=== PATIENT | female | born 1975 | race Caucasian/White ===

== ENCOUNTER 2020-09-03 08:05 | Inpatient (IN) | payer OTHER, SELFPAY ==
[2020-09-03] VITALS (119 sets, daily range): BP systolic 79–111; BP diastolic 44–61; PULSE 66–91; RESP 18–33; TEMP 36.9–37; O2SAT 82–95; BMI 45.3
[2020-09-03 08:32] LABS: Basophils % 0.2 %; Hematocrit 35.4 % (37.0-47.0); Hemoglobin 11.3 g/dL (11.5-15.3); Lymphocytes # 0.5 10^3/uL (0.8-4.8); Mean Corpuscular HGB Conc 31.9 g/dL (30.0-36.0); Mean Corpuscular Hemoglobin 28.8 pg (28.0-34.0); Mean Corpuscular Volume 90.3 fL (81-99); Mean Platelet Volume 9.8 fL (7.4-10.4); Monocytes # 0.4 10^3/uL (0.2-0.9); Monocytes % 2.6 %; Neutrophils % 93.7 %; Nucleated Red Blood Cells % 0 %; Platelet Count 268 10^3/cmm (130-400); Red Blood Count 3.92 10^6/uL (4.1-5.3); Red Cell Distribution Width 14.4 % (12.1-15.1); White Blood Count 16.4 10^3/uL (4.0-10.0)
[2020-09-03 08:51] LABS: Alanine Aminotransferase 30 U/L (0-33); Albumin Level 3.7 g/dL (3.5-5.2); Alkaline Phosphatase 78 IU/L (35-105); Aspartate Amino Transferase 45 U/L (0-32); Blood Urea Nitrogen 18 mg/dL (6-20); Calcium 8.6 mg/dL (8.5-10.5); Carbon Dioxide 29 mmol/L (22-29); Chloride 98 mmol/L (98-107); Globulin 3.2 g/dL (1.3-4.6); Glomerular Filtration Rate 90.5 mL/min (90-130); Glucose 122 mg/dL (65-115); Osmolality Calculated 289 mOsm/kg (285-295); Sodium 138 mmol/L (136-145); Total Bilirubin 0.4 mg/dL (0.15-1.2); Total Protein 6.9 g/dL (6.6-8.7)
[2020-09-03 08:54] LABS: ABG PCO2 46.6 mmHg (35-45); ABG PH Result 7.42 (7.35-7.45); Arterial Blood Gas Hematocrit 36.1 % (37-47); Base Excess ABG 4.6 mmol/L (-2.0-2.0); Blood Gas Allen Test Pos; Blood Gas Operator Identificat MONRO; Blood Gas Sample Site Radial, left; Blood Gas Sample Type Arterial; Carboxyhemoglobin 0.8 %THgb (0.4-20.1); HCO3 ABG 29.9 mmol/L (22-26); HGB O2 Sat 91.2 % (95-100); Ionized Calcium Level - ABG 1.2 mmol/L (1.1-1.4); Methemoglobin 0.9 % (0.4-1.5); Oxygen Device BIPAP; Oxygen Saturation ABG 92.8; PO2 ABG 63.8 mmHg (80.0-100.0); Potassium Level - ABG 3.8 mmol/L (3.5-5.0); Total Hemoglobin 11.8 g/dL (12-16)
[2020-09-03] MEDS: succinylcholine 20 mg/mL SDV 10mL 100 MG IV (09:44)
--- NOTE | 2020-09-03 10:04 | XR_ITS ---
WS: [id number] PORTABLE CHEST HISTORY: intubation, central line placement COMPARISON: None available. Endotracheal tube ends 2 cm above the tyesha. LEFT central line with tip terminating in the LEFT inno minate, prior to the superior vena cava. Severe bilateral pulmonary opacifications. Dense areas of consolidation bilaterally. No pleural effus ion or pneumothorax. Cardiac size: Normal. Mediastinum/Aorta: Normal mediastinum. No osseous abnormality seen. XR/XR chest 1V portable [id number] IMPRESSION: 1. Endotracheal tube in good position. 2. LEFT central line terminates at the junction of the LEFT innominate with th e SVC. 3. Severe bilateral pulmonary opacifications.
[2020-09-03] MEDS: vecuronium 10 mg SDV IVP (10:05)
[2020-09-03] MEDS: propofol 1,000 MG/100 ML INJ 16.9 MG IV (10:15)
[2020-09-03] MEDS: ipratropium-albuterol 3 mL Neb INHALATION ×3 (12:48→19:37)
[2020-09-03] MEDS: famotidine 20 mg/2 mL INJ IVP (13:52)
[2020-09-03] MEDS: piperacillin-tazobactam 3.375 GM in sodium chloride 0.9% (plus) 50 ML IV ×2 (13:52→21:40)
[2020-09-03] MEDS: enoxaparin 40 mg/0.4 mL Syringe SUBCUT (13:52)
[2020-09-03] MEDS: remdesivir 200 MG in sodium chloride 0.9% (100 ml) 100 ML 100 MG IV (13:52)
[2020-09-03] MEDS: dexamethasone 4 mg/mL INJ 6 MG IVP (14:18)
[2020-09-03 14:19] LABS: ABG PCO2 55.7 mmHg (35-45); ABG PH Result 7.35 (7.35-7.45); Alveolar-Arterial Oxygen Gradi 75.7 mmHg (5-10); Arterial Blood Gas Hematocrit 34.2 % (37-47); Blood Gas Allen Test Pos; Blood Gas Operator Identificat MONRO; Blood Gas Sample Site Radial, right; Blood Gas Sample Type Arterial; HCO3 ABG 30.7 mmol/L (22-26); Ionized Calcium Level - ABG 1.2 mmol/L (1.1-1.4); Methemoglobin 0.6 % (0.4-1.5); Oxygen Device VENT; Oxygen Saturation ABG 91.5; PO2 ABG 63.3 mmHg (80.0-100.0); Potassium Level - ABG 3.8 mmol/L (3.5-5.0); Total Hemoglobin 11.2 g/dL (12-16)
--- NOTE | 2020-09-03 14:25 | P.HP_ITS ---
Providers/Chief Complaint Admitting Physician: Sandy Mohamud Chief Complaint: Dyspnea History of Present Illness 45-year-old female with a past medical history significant for anxiety, depression, hypertension, restless leg syndrome and asthma who presented to the ER on 09/02 during which time she was found to have COVID-19 Infection s ubsequently discharged on oxygen and Decadron. She will return to the hospital due to progressively worsening respiratory distress. O2 sat was found to be 76%. She was placed on BiPAP, given ceftriaxone, azithromycin and transferred to [facility]. Upon arrival patient was noted to have labored respiration on BiPAP with Fio2 at 100%. ABG drawn showed a PH of 7.42, pCO2 of 46.6, Po2 of 63.8, HCO3 of 29.0. Due to increase work of breath and high risk for decompensation patient was intubated on placed on mechanical ventilation. Remained of labs drawn showed a WBC of 16.4, hgb of 11.3, hct of 35.4 and a platlet count of 268. Sodium of 138, potassium of 4.0, chloride of 98, bicarbonate of 29, BUN of 18 and a creatinine of 0.7. AST of 45, ALT of 30 and ALP of 78. Chest x-ray was obtained post extubation which noted severe bilateral pulmonary opacifications, ET tube at 2 cm above the tyesha and left centeral line terminated at the junction of the left innominate with the SVC. Started initially on propofol for sedation however this was being transitioned to versed with addition of fentanyl. Remdesivir 200mg IV x1 followed by 100mg IV daily x 4 days was initiated along with broad specturm antibiotics including vancomycin and zosyn. Pulmonary medicine was consulted. Of note patient was started on decadron which patient was apperantly taking prior to arrival and tolerating despite listed prednisone allergy. Review of Systems General: Reports: ROS unobtainable due to endotracheal tube Medications/Allergies Allergies Allergy/AdvReac Type Severity Reaction Status Date / Time prednisone Allergy Unknown Verified 09/03/20 13:43 Sulfa (Sulfonamide Allergy Unknown Verified 09/03/20 13:43 Antibiotics) PFSH Acute PFSH: Medical History (Updated 09/03/20 @ 14:30 by Sandy Mohamud MD) Anxiety Asthma Depression Hypertension Morbid obesity Restless leg syndrome Surgical History (Updated 09/03/20 @ 14:29 by Sandy Mohamud MD) Surgical history unknown Social History (Updated 09/03/20 @ 14:29 by Sandy Mohamud MD) Smoking and tobacco status: unknown if ever smoked Alcohol intake: unknown Substance/Drug Use: unknown Vitals/I&O/Wt Last Vital Signs Pulse 84 09/03/20 12:48 Resp 22 H 09/03/20 12:48 Pulse Ox 95 09/03/20 12:48 09/02/20 09/03/20 09/03/20 22:59 06:59 14:59 Intake Total 11.575 / 11.575 Balance 11.575 / 11.575 Weight last 48 hrs Weight 112.548 kg Physical Exam Narrative: EXAM NARRATIVE: General : intubated on MV HEENT : ET tube in place CVS : NSR Chest : B/L vented sounds ABD : Non-distended Ext: no edema Data : 09/03/20 08:00 09/03/20 08:00 A&P Assessment and plan (1) Acute respiratory distress syndrome (ARDS) due to 2019 novel coronavirus: Status: Acute Acute respiratory distress syndrome due to COVID-19 pneumonia on mechanical ventilation / Reported underlying Asthma - Intubated on arrival due to increase work of breathing, hypoxia on 100% Fio2 - Left centeral line placed. Slighlty above SVC. ok to use for now. If prolonged need will re-insert unable to advance now. - Repeat ABG post intubating/mv ordered - Will continue adjust vent settings with assistance from pulmonary medicine - Versed/Fentanyl for sedation. Weaning off propofol - Maintain RASS neg 2 - Deep sedation - Remdesivir 200mg IV x1 now - > 100 mg daily x 4 days - Decadron 6 mg IV daily ordered after clarifying allergy - Less likley to have super-imposed bacterial infection however will obtain blood culture x2, sputum culture and start broad specturm antibiotics pending pro-calcitonin. - Low threshold to de-escalating off abx - Repeat chest x-ray and ABG in AM - Start on Broncho-dilatory treatments - Will also check D-dimer stat now- If high will obtain CTA Chest PE protocol FEN - Dietary consult - Initiate Tube feeding Lines/Tubes - ET tube - L. IJ Central line - PIV - Yepez - OG Gi ppx - Pepcid 20 mg IV BID DVT ppx - Lovenox 40 mg SQ daily Additional Medical History ( obtained per sign-out ) - Hypertension - Anxiety/depression - Restless leg syndrome Procedures Central Line Placement^ Left IJ: Time out performed: Yes Patient placed on monitor/pulse ox: Yes MD prep: mask, gown, gloves and other (Facesheild ) Central line prep: Chlorhexidine scrub and sterile drapes applied Ultrasound used for placement: Yes Central line lumen inserted: triple Post procedure: sutured in place, good blood return, all ports aspirated, flushed, capped and sterile dressing applied Post procedure x-ray: other (Tip of catherter slightly above SVC) Patient tolerated procedure: well and no complications Complications: none Additional comments: Procedure was supervised by Dr. Rankin Intubation Time out performed: Yes Sedative: etomidate Mg given: 20 Paralytic: succinylcholine Mg given: 100 Laryngoscope: fiber optic video scope ET tube size: 4 ET tube uncuffed: Yes Tube secured depth (cm): 22 Tube secured location: teeth Tube placement confirmation: visualized tube passing through cords, equal breath sounds bilaterally, confirmation by capnometry and color change noted Patient tolerated procedure: well and no complications Intubation complications: none Attestations Medical Necessity Statement*: Will require over 2 midnight stay in hospital for management of ARDs due to COVID19 requiring vent Time Spent in Patient Care: Greater than 35 minutes (>than 50% of time spent in counselling and/or direct pt care on unit) . Critical Care Time: Critical Care Time (min): 80 Coding Level of Care Code Acute [facility] Diagnoses Acute respiratory distress syndrome (ARDS) due to 2019 novel coronavirus U07.1; J80
[2020-09-03] MEDS: vancomycin 1,250 MG/250 ML PIGGYBACK 200 MG IV (15:17)
[2020-09-03] MEDS: propofol 1,000 MG/100 ML INJ 6.8 MG IV (15:17)
--- NOTE | 2020-09-03 16:29 | PM.CONSULT ---
Providers/Reason For Consult Consulting Physican/Specialty*: Jeronimo Torres MD /Pulmonary Critical Care Reason for Consult*: Vent management in acute hypoxic respiratory failure secondary to ARDS due to COVID-19 pneumonia. Attending Physician: Sandy Mohamud History of Present Illness History of Present Illness 45-year-old female with a PMH significant for anxiety, depression, hypertension, restless leg syndrome and asthma who presented to the ER on 09/02, found to have COVID-19 Infection subsequently discharged on oxygen and Decadron and returned to hospital for progressively worsening respiratory distress. O2 sat was found to be 76%. Initially placed on BiPAP, given ceftriaxone, azithromycin and transferred to [facility]. Upon arrival patient was noted to have labored respiration on BiPAP with Fio2 at 100%. ABG drawn showed a PH of 7.42, pCO2 of 46.6, Po2 of 63.8, HCO3 of 29.0. Due to increase work of breath and high risk for decompensation patient was intubated on placed on mechanical ventilation. Chest x-ray was obtained post extubation which noted severe bilateral pulmonary opacifications. Started initially on propofol for sedation however this was being transitioned to versed with addition of fentanyl. Remdesivir 200mg IV x1 followed by 100mg IV daily x 4 days was initiated along with broad specturm antibiotics including vancomycin and zosyn. Despite 100% FiO2 on ventilator with a PEEP of 12 patient was saturating low 80s initially post intubation. Pulmonary/CC consult requested for management of ventilator. Review of Systems General: Reports: 10 or more systems reviewed and unremarkable except in HPI and below, ROS unobtainable due to endotracheal tube, ROS unobtainable due to medical condition and ROS unobtainable due to mental status Meds/Allergies Home Medications and Allergies Allergies Allergy/AdvReac Type Severity Reaction Status Date / Time prednisone Allergy Unknown Verified 09/03/20 13:43 Sulfa (Sulfonamide Allergy Unknown Verified 09/03/20 13:43 Antibiotics) Current Medications Current Medications Generic Name Dose Route Start Last Admin Trade Name Freq PRN Reason Stop Dose Admin Albuterol/Ipratropium 3 ml 09/03/20 12:00 09/03/20 15:21 Ipratropium-Albuterol 3 Ml Neb INHALATION 3 ml Q4H.RESPIRATORY LUIS Administration Dexamethasone 6 mg 09/03/20 13:30 09/03/20 14:18 Dexamethasone 4 Mg/Ml Inj IVP 6 mg Q24H LUIS Administration Enoxaparin Sodium 40 mg 09/03/20 13:00 09/03/20 13:52 Enoxaparin 40 Mg/0.4 Ml Syringe SUBCUT 40 mg Q24H LUIS Administration Famotidine 20 mg 09/03/20 13:00 09/03/20 13:52 Famotidine 20 Mg/2 Ml Inj IVP 20 mg Q12H LUIS Administration Propofol 1,000 mg in 100 mls @ 0 mls/hr 09/03/20 10:00 09/03/20 15:17 Diprivan IV 10 mcg/kg/min .Q0M LUIS 6.8 mls/hr Administration Protocol Per Protocol Fentanyl 1,000 mcg/ Sodium 100 mls @ 0 mls/hr 09/03/20 10:45 09/03/20 12:40 Chloride IV 150 mcg/hr .Q0M LUIS 15 mls/hr Titration Protocol Per Protocol Midazolam HCl 100 mg/ Sodium 100 mls @ 0 mls/hr 09/03/20 12:15 09/03/20 14:04 Chloride IV 1 mg/hr .Q0M LUIS 1 mls/hr Administration Protocol Per Protocol Piperacillin Sod/Tazobactam 50 mls @ 12.5 mls/hr 09/03/20 13:00 09/03/20 13:52 Sod 3.375 gm/ Sodium Chloride IV 12.5 mls/hr Q8H LUIS Administration Protocol Vancomycin/PEG/NADA/Lysine/Water 1,250 mg in 250 mls @ 200 mls/hr 09/03/20 15:00 09/03/20 15:17 Vancocin IV 200 mls/hr Q8H LUIS Administration PFSH Acute PFSH: Medical History Anxiety Asthma Depression Hypertension Morbid obesity Restless leg syndrome Surgical History Surgical history unknown Social History Smoking and tobacco status: unknown if ever smoked Alcohol intake: unknown Substance/Drug Use: unknown Vitals/I&O/Wt Last Vital Signs Pulse 68 09/03/20 15:21 Resp 22 H 09/03/20 15:21 Pulse Ox 91 09/03/20 15:21 09/03/20 09/03/20 09/03/20 06:59 14:59 22:59 Intake Total 106.842 / 106.842 102.2 / 209.042 Balance 106.842 / 106.842 102.2 / 209.042 Weight last 48 hrs Weight 248 lb 2 oz Physical Exam Narrative: EXAM NARRATIVE: PHYSICAL EXAM: General: lying in bed, sedated and intubated. HEENT:NCAT, PERRLA, EOMI Neck: Supple Lungs: Bilateral diffuse crackles and coarse rhonchi Heart: s1/s2, RRR Abd: Obese, soft, NT, ND, BS + Normoactive Extremities: No edema COLLAR TURNER OPERATOR: sedated and limited COLLAR TURNER OPERATOR exam possible. SKIN: no rash LDA: # CVC: Left IJ 09/03/2020 # Fernandes: 09/03/2020 Data Other Data: Other data: Labs, imaging, other investigations reviewed in [facility] Chest x-ray 09/03/2020: 1. Endotracheal tube in good position. 2. LEFT central line terminates at the junction of the LEFT innominate with the SVC. 3. Severe bilateral pulmonary opacifications. A&P Assessment and plan (1) Acute respiratory distress syndrome (ARDS) due to 2019 novel coronavirus: Status: Acute (2) Asthma: Status: Acute Qualifiers: Asthma severity: unspecified severity Asthma persistence: unspecified Asthma complication type: unspecified Qualified Code(s): J45.909 - Unspecified asthma, uncomplicated (3) HTN (hypertension): Status: Acute Qualifiers: Hypertension type: unspecified Qualified Code(s): I10 - Essential (primary) hypertension (4) Ventilator dependent: Status: Acute (5) Acute respiratory failure with hypoxia: Status: Acute (6) Morbid obesity: Status: Acute 45-year-old female with a PMH significant for anxiety, depression, hypertension, restless leg syndrome and asthma who presented to the outside ER on 09/02, found to have COVID-19 Infection subsequently discharged on oxygen and Decadron and returned to hospital for progressively worsening respiratory failure admitted to viral ICU for management of acute hypoxemic respiratory failure secondary to acute respiratory distress syndrome due to COVID-19 pneumonia requiring intubation and mechanical ventilation. NEURO: # Sedation -Recommended to increase sedation with drips drips fentanyl 150 MCG/hr, Versed 2 mg/hr, and taper down propofol -If patient is overbreathing the vent then start paralytic Nimbex/rocuronium PULM: #Acute hypoxic and hypercapneic respiratory failure secondary to ARDS due to COVID pna #Respiratory status worsened by contribution from asthma exacerbation -Intubated on 09/02/2020 -Post intubation patient was saturating in 70s even on 100% FiO2 and PEEP 14; but after increasing sedation and nebulizations currently saturating 94% -Recommended -DuoNeb nebulization every 4 hours and Pulmicort 0.5 twice daily -Most recent ABG on pressure control mode 30 PIP, PEEP 14, rate 20, inspiratory time 0.95 seconds and FiO2 100% - 7.3 5/55/63/34/91% -If hypoxia is persistent this might on maximum settings recommended starting on paralytic and prone -CXR Patchy multifocal airspace disease bilaterally. -please send other inflammatory markers ESR, LDH, CRP, ferritin and repeat every 2 days to trend markers of inflammation -Currently on remdesivir and dexamethasone daily CVS: -Hemodynamically stable -Recommended to taper down propofol -Monitor heart rate and blood pressure -Please send for BNP and echo GI: -N.p.o. -H2 chasidy daily for GI prophylaxis -AST 45-monitor LFTs RENAL: -Renal functions normal -Electrolytes within normal limits -Send for magnesium, phosphorus, lactic acid and CK -Monitor input output -Continue fernandes cath -Avoid nephrotoxins -Monitor BUN/creatinine and electrolytes and supplement accordingly to keep k>4, Mg >2 HEM: H&H stable Plts stable,will trend Coags stable ENDO: -No active issues -If sugars and CMP are high-start on scale coverage ID: #Severe sepsis secondary to COVID pna -WBC 16 K with left shift -could be due to steroids which she was taking even before admission - Afebrile -Covered with vancomycin and Zosyn -Send for procalcitonin and lactic acid -If patient spikes fever or WBC worsens please send for pancultures -BC,UA,Sputum culture and start on broad-spectrum antibiotics vancomycin and cefepime. Prognosis: Critical Family updated Recommendations conveyed to Dr. Mohamud taking care of the patient Consult Attestations Medical Necessity Statement: acute hypoxemic respiratory failure requiring intubation and mechanical ventilation secondary to acute respiratory distress syndrome due to COVID-19 pneumonia in patient with history of asthma. Time Spent in Patient Care: Greater than 35 minutes (>than 50% of time spent in counselling and/or direct pt care on unit). Critical Care Time: Critical Care Time (min): 45 Coding Level of Care Code New Pt Acute Finisher Denture for Chg Fwd Patient Type New History Comprehensive Exam Comprehensive Medical Decision Making High Complexity Diagnoses Acute respiratory distress syndrome (ARDS) due to 2019 novel coronavirus U07.1; J80 Asthma J45.909 Asthma severity: unspecified severity Asthma persistence: unspecified Asthma complication type: unspecified HTN (hypertension) I10 Hypertension type: unspecified Ventilator dependent Z99.11 Acute respiratory failure with hypoxia J96.01 Morbid obesity E66.01 Time Spent (min) 45
[2020-09-03] MEDS: magnesium sulfate premix 2 GM/50 ML PIGGYBACK IV (19:31)
[2020-09-03] MEDS: budesonide 0.5 mg/2 mL Neb INHALATION (19:37)
[2020-09-03] MEDS: sodium chloride 0.9% 1,000 ML 30 ML IV (19:54)
--- NOTE | 2020-09-03 21:12 | PC.NURSE ---
Care Assumed Patient was found by this RN to have a Pulse Ox ranging from 84-86% with 100% FIO2 on vent settings at time of shift change. Patient appeared anxious with RR up around 40BMP. This RN increased Propofol from 30mcg to 40mcg in efforts to help decrease anxiety exhibited by patient, after attempted guided breathing exercises failed. Patient returned to baseline of 89-92% reported by dayshift after titration of drip. Pt now resting comfortably with RN and RT frequently rounding on patient's needs. Drips found running at shift change are as listed: Propofol 30mcg/kg/min Fentanyl 150mcg/hr Versed 3mg/hr Levophed 2mcg/min
[2020-09-03 22:07] LABS: Procalcitonin 0.13 ng/mL (0-0.5)
[2020-09-03 22:19] LABS: Ferritin 360 ng/mL (15-150)
[2020-09-03] MEDS: propofol 1,000 MG/100 ML INJ 27 MG IV (22:28)
[2020-09-03 22:39] LABS: D Dimer 0.78 ug/mIFEU (0-0.59)
[2020-09-04] VITALS (154 sets, daily range): BP systolic 79–120; BP diastolic 47–79; PULSE 74–108; RESP 22–24; TEMP 37–37.6; O2SAT 82–100
[2020-09-04] MEDS: ipratropium-albuterol 3 mL Neb INHALATION ×6 (00:02→20:37)
--- NOTE | 2020-09-04 00:14 | PC.NURSE ---
Patient continuing to fluctuated between 80-85% SPO2 while actively placed on vent. Vent settings remain at 100% FIO2. Patient is not/has not been breathing over vent settings at this time. RN consulted MD national van owner operator to update on pt's overall condition/with concerns and discuss further options going forth. Since pt is not breathing over vent settings, MD verbalized that paralytic and proning were not indicated at this time. New orders received for RT to perform a PRN Albuterol breathing tx at this time. RN continuing to monitor/round frequently.
[2020-09-04] MEDS: famotidine 20 mg/2 mL INJ IVP ×2 (00:29→12:19)
[2020-09-04] MEDS: vancomycin 1,250 MG/250 ML PIGGYBACK 200 MG IV ×3 (00:29→14:04)
[2020-09-04] MEDS: propofol 1,000 MG/100 ML INJ 20.3 MG IV ×2 (02:58→21:29)
[2020-09-04 03:58] LABS: ABG PCO2 57.5 mmHg (35-45); ABG PH Result 7.33 (7.35-7.45); Arterial Blood Gas Hematocrit 36.2 % (37-47); Blood Gas Sample Site Radial, right; Blood Gas Sample Type Arterial; HCO3 ABG 30.2 mmol/L (22-26); Oxygen Device VENT; PO2 ABG 60.2 mmHg (80.0-100.0)
[2020-09-04 04:53] LABS: Basophils % 0.1 %; Hematocrit 34.6 % (37.0-47.0); Hemoglobin 10.7 g/dL (11.5-15.3); Lymphocytes # 0.3 10^3/uL (0.8-4.8); Lymphocytes % 1.8 %; Mean Corpuscular HGB Conc 30.9 g/dL (30.0-36.0); Mean Corpuscular Hemoglobin 28.8 pg (28.0-34.0); Mean Corpuscular Volume 93.3 fL (81-99); Mean Platelet Volume 9.7 fL (7.4-10.4); Monocytes # 0.7 10^3/uL (0.2-0.9); Monocytes % 3.7 %; Neutrophils # 17.04 10^3/uL (1.8-7.7); Neutrophils % 92.8 %; Nucleated Red Blood Cells % 0 %; Platelet Count 315 10^3/cmm (130-400); Red Blood Count 3.71 10^6/uL (4.1-5.3); Red Cell Distribution Width 14.7 % (12.1-15.1); White Blood Count 18.4 10^3/uL (4.0-10.0)
[2020-09-04 05:17] LABS: Alanine Aminotransferase 35 U/L (0-33); Albumin Level 3.5 g/dL (3.5-5.2); Alkaline Phosphatase 75 IU/L (35-105); Anion Gap 13.7 (5-19); Aspartate Amino Transferase 41 U/L (0-32); Blood Urea Nitrogen 24 mg/dL (6-20); Calcium 8.1 mg/dL (8.5-10.5); Carbon Dioxide 29 mmol/L (22-29); Chloride 98 mmol/L (98-107); Globulin 3.2 g/dL (1.3-4.6); Glomerular Filtration Rate 90.5 mL/min (90-130); Glucose 171 mg/dL (65-115); Osmolality Calculated 292 mOsm/kg (285-295); Potassium 3.7 mmol/L (3.5-5.1); Sodium 137 mmol/L (136-145); Total Bilirubin 0.5 mg/dL (0.15-1.2); Total Protein 6.7 g/dL (6.6-8.7)
[2020-09-04] MEDS: piperacillin-tazobactam 3.375 GM in sodium chloride 0.9% (plus) 50 ML IV ×2 (06:07→12:16)
[2020-09-04] MEDS: budesonide 0.5 mg/2 mL Neb INHALATION ×2 (07:27→20:37)
[2020-09-04] MEDS: propofol 1,000 MG/100 ML INJ 27 MG IV (08:17)
--- NOTE | 2020-09-04 10:17 | XRR_ITS ---
PROCEDURE INFORMATION: Exam: XR Chest, 1 View Exam date and time: 09/04/2020 10:49 AM Age: 45 years old Clinical indication: Device placement; Ett placement (vent status); Additional info: Et placement confirmation TECHNIQUE: Imaging protocol: XR of the chest Views: Frontal portable semiupright view of the chest. COMPARISON: CR XR chest 1V portable [id number] 09/03/2020 10:23 AM FINDINGS: Tubes, catheters and devices: The endotracheal tube tip is approximately 4.5 cm above the tyesha. EKG leads are present overlying the chest. Lungs: Moderate pulmonary hypoexpansion. Stable heterogeneous air space opacities in the bilateral lungs. Pleural space: No definite pleural effusion. No pneumothorax. Heart/Mediastinum: Mediastinum: Stable. Vasculature: The left internal jugular venous catheter tip is in the proximal left internal jugular vein. Bones/joints: Stable. Gastrointestinal tract: Gaseous gastric distention. XR/XR chest 1V portable [id number] IMPRESSION: 1. Moderate pulmonary hypoexpansion. 2. Stable bilateral pulmonary infiltrates, pneumonitis not excluded. Clinical correlation is recommended. 3. Endotracheal tube placement as above. 4. Gaseous gastric distention.
[2020-09-04] MEDS: propofol 1,000 MG/100 ML INJ 23.6 MG IV ×2 (11:20→15:45)
[2020-09-04 11:48] LABS: ABG PCO2 56.3 mmHg (35-45); ABG PH Result 7.33 (7.35-7.45); Alveolar-Arterial Oxygen Gradi 77.2 mmHg (5-10); Arterial Blood Gas Hematocrit 34.4 % (37-47); Base Excess ABG 2.8 mmol/L (-2.0-2.0); Blood Gas Allen Test Pos; Blood Gas Operator Identificat CAK; Blood Gas Sample Site Radial, left; Blood Gas Sample Type Arterial; Carboxyhemoglobin 0.8 %THgb (0.4-20.1); HCO3 ABG 29.7 mmol/L (22-26); HGB O2 Sat 86.7 % (95-100); Ionized Calcium Level - ABG 1.1 mmol/L (1.1-1.4); Methemoglobin 1.1 % (0.4-1.5); Oxygen Device VENT; Oxygen Saturation ABG 88.4; PO2 ABG 56.2 mmHg (80.0-100.0); Potassium Level - ABG 3.3 mmol/L (3.5-5.0); Total Hemoglobin 11.2 g/dL (12-16)
[2020-09-04] MEDS: enoxaparin 40 mg/0.4 mL Syringe SUBCUT (12:18)
[2020-09-04] MEDS: dexamethasone 4 mg/mL INJ 6 MG IVP (14:05)
--- NOTE | 2020-09-04 14:59 | P.PN_ITS ---
Subjective Subjective: Interval history: 45-year-old female with a past medical history significant for anxiety, depression, hypertension, restless leg syndrome and asthma who presented to the ER on 09/02 during which time she was found to have COVID-19 Infection subsequently discharged on oxygen and Decadron. She will return to the hospital due to progressively worsening respiratory distress. O2 sat was found to be 76%. She was placed on BiPAP, given ceftriaxone, azithromycin and transferred to [facility]. Upon arrival patient was noted to have labored respiration on BiPAP with Fio2 at 100%. ABG drawn showed a PH of 7.42, pCO2 of 46.6, Po2 of 63.8, HCO3 of 29.0. Due to increase work of breath and high risk for decompensation patient was intubated on placed on mechanical ventilation. Remained of labs drawn showed a WBC of 16.4, hgb of 11.3, hct of 35.4 and a platlet count of 268. Sodium of 138, potassium of 4.0, chloride of 98, bicarbonate of 29, BUN of 18 and a creatinine of 0.7. AST of 45, ALT of 30 and ALP of 78. Chest x-ray was obtained post intubation which noted severe bilateral pulmonary opacifications, ET tube at 2 cm above the tyesha and left centeral line terminated at the junction of the left innominate with the SVC. Started initially on propofol for sedation however this was being transitioned to versed with addition of fentanyl. Remdesivir 200mg IV x1 followed by 100mg IV daily x 4 days was initiated along with broad spectrum antibiotics including vancomycin and zosyn. Pulmonary medicine was consulted. Of note patient was started on decadron which patient was apparently taking prior to arrival and tolerating despite listed prednisone allergy. 09/04 Patient was noted to have cuff leak and thus ET tube was replaced. Continue on vent with sedation. Also continued to require 100% Fio2. Low grade temp -99.2. Medications: Reviewed: Yes Vitals/I&O/Wt Last Vital Signs Temp 99.2 F 09/04/20 14:00 Pulse 90 09/04/20 14:00 Resp 22 H 09/04/20 14:00 BP 85/52 09/04/20 14:00 Pulse Ox 96 09/04/20 14:00 09/03/20 09/04/20 09/04/20 22:59 06:59 14:59 Intake Total 679.960 / 786.802 600.0 / 1386.802 796.923 / 796.923 Output Total 350 / 650 500 / 1150 325 / 325 Balance 329.960 / 136.802 100 / 236.802 471.923 / 471.923 Weight last 48 hrs Weight 112.549 kg Weight 112.548 kg Physical Exam Narrative: EXAM NARRATIVE: General : intubated on MV HEENT : ET tube in place CVS : NSR Chest : B/L vented sounds ABD : Non-distended Ext: no edema Data : 09/04/20 04:00 09/04/20 04:00 Micro: Microbiology 09/03/20 18:20 Gram Stain - Final Sputum - Endotracheal Wash 09/03/20 17:24 Blood Culture - Preliminary Blood SPECIMEN COLLECTED 09/03/20 17:11 Blood Culture - Preliminary Blood SPECIMEN COLLECTED A&P Assessment and plan (1) Acute respiratory distress syndrome (ARDS) due to 2019 novel coronavirus: Status: Acute Acute respiratory distress syndrome due to COVID-19 pneumonia on mechanical ventilation / Reported underlying Asthma - Intubated on 09/03 - D-dimer - 0.75 - 09/04 - ABG - PH of 7.33, PCO2 of 56.3, PO2 of 56.2, HCO3 of 29.7 on PS, PEEP 14, Fio2 100% - 09/04 - Chest x-ray -> Moderate pulmonary htn, stable b/l pulmonary infiltrates, ET 4.5 cm above the tyesha, gaseous distention of stomach. - Currently on Propofol, Versed and Fentanyl for sedation - Maintain RASS neg 4 - Deep sedation protocol - Continue Duoneb Q4hr , Pulmicort 0.5 mg BID - Found to have cuff leak this am - ET Tube replaced - Follow up on repeat ABG - Chest x-ray in AM - Will consider initiating nimbix and attempting proning today - D/W pulmonary medicine on consult Hypotension - Likely due to sedative meds - Levophed ordered to keep MAP > 65 - Wean as tolerated COVID -19 Pneumonia - Less likely super imposed bacterial component - Pro-calcitonin - 0.13 - 09.03 Blcx - > NGTD - 09.03 Sputum culture - GS-neg, Culture - NGTD - Empirically on Vancomcyin/Zosyn 09/02 - Will discontinue antibiotics and monitor off - Remdesivir 100 mg IV daily until 09/07 - Decadron 6 mg IV daily - Repeat Ferritin, CRP, Pro-marcela, D-dimer q2 days Hypokalemia - K 3.3 - Replace and recheck in AM Leukocytosis - Likely steroid induced - WBC 18.4 - Procal 0.13 - CBC in AM Tranaminitis - Likely due to above - AST 41 - ALT - 35 - Continue daily LFTs Lines/Tubes - ET tube - L. IJ Central line - PIV - Yepez - OG Gi ppx - Pepcid 20 mg IV BID DVT ppx - Lovenox 40 mg SQ daily Additional Medical History ( obtained per sign-out ) - Hypertension - Anxiety/depression - Restless leg syndrome Attestations Medical Necessity Statement*: Will require hospitalization for management of covid 19 related respiratory failure Time Spent in Patient Care: Greater than 35 minutes (>than 50% of time spent in counselling and/or direct pt care on unit) . Procedures Intubation Time out performed: Yes Sedative: other (Propofol ) Laryngoscope: fiber optic video scope ET tube size: 8 ET tube uncuffed: No Tube secured depth (cm): 24 Tube secured location: teeth Tube placement confirmation: visualized tube passing through cords, equal breath sounds bilaterally, confirmation by capnometry and color change noted Patient tolerated procedure: well and no complications Intubation complications: none Additional comments: ET tube replaced due to cuff leak. Coding Level of Care Code Acute Cigar Wrapper Tender Automatic for [facility] Diagnoses Acute respiratory distress syndrome (ARDS) due to 2019 novel coronavirus U07.1; J80
[2020-09-04 15:03] LABS: Vancomycin Trough 15.5 ug/mL (10-15)
--- NOTE | 2020-09-04 16:46 | P.CONIM_ITS ---
Providers/Reason For Consult Consulting Physican/Specialty*: General Surgery Tod Gamboa MD Reason for Consult*: Central line replacement. Attending Physician: Sandy Mohamud History of Present Illness History of Present Illness Kalpana Hidalgo is a 45 year old female currently in the viral ICU with respiratory failure secondary to coronavirus infection. She had a triple-lumen central venous catheter placed into the left internal jugular vein yesterday but on repeat x-ray this morning the catheter apparently had been pulled out partial ly and Dr. Mohamud had asked if I would place a replacement/new central line. Review of Systems General: Reports: ROS unobtainable due to endotracheal tube Meds/Allergies Home Medications and Allergies Home Medications Medication Instructions Recorded Confirmed Last Taken Type albuterol sulfate 2 puff INHALATION Q4H PRN 09/04/20 09/04/20 Unknown History dexamethasone 8 mg PO DAILY 09/04/20 09/04/20 Unknown History doxycycline hyclate 100 mg PO Q12H 09/04/20 09/04/20 Unknown History lisinopril 20 mg PO DAILY 09/04/20 09/04/20 Unknown History ropinirole 0.5 mg PO TID 09/04/20 09/04/20 Unknown History Allergies Allergy/AdvReac Type Severity Reaction Status Date / Time prednisone Allergy Unknown Verified 09/03/20 13:43 Sulfa (Sulfonamide Allergy Unknown Verified 09/03/20 13:43 Antibiotics) Current Medications Current Medications Generic Name Dose Route Start Last Admin Trade Name Freq PRN Reason Stop Dose Admin Albuterol Sulfate 5 mg 09/04/20 10:25 09/04/20 13:36 Albuterol 2.5 Mg/0.5 Ml Neb INHALATION 09/09/20 14:31 5 mg Q2H PRN Administration BRONCHOSPASM Albuterol/Ipratropium 3 ml 09/03/20 12:00 09/04/20 15:39 Ipratropium-Albuterol 3 Ml Neb INHALATION 3 ml Q4H.RESPIRATORY LUIS Administration Budesonide 0.5 mg 09/03/20 20:00 09/04/20 07:27 Budesonide 0.5 Mg/2 Ml Neb INHALATION 0.5 mg BID.RESPIRATORY LUIS Administration Dexamethasone 6 mg 09/03/20 13:30 09/04/20 14:05 Dexamethasone 4 Mg/Ml Inj IVP 6 mg Q24H LUIS Administration Enoxaparin Sodium 40 mg 09/03/20 13:00 09/04/20 12:18 Enoxaparin 40 Mg/0.4 Ml Syringe SUBCUT 40 mg Q24H LUIS Administration Famotidine 20 mg 09/03/20 13:00 09/04/20 12:19 Famotidine 20 Mg/2 Ml Inj IVP 20 mg Q12H LUIS Administration Propofol 1,000 mg in 100 mls @ 0 mls/hr 09/03/20 10:00 09/04/20 15:45 Diprivan IV 35 mcg/kg/min .Q0M LUIS 23.6 mls/hr Administration Protocol Per Protocol Fentanyl 1,000 mcg/ Sodium 100 mls @ 0 mls/hr 09/03/20 10:45 09/04/20 13:25 Chloride IV 150 mcg/hr .Q0M LUIS 15 mls/hr Administration Protocol Per Protocol Midazolam HCl 100 mg/ Sodium 100 mls @ 0 mls/hr 09/03/20 12:15 09/03/20 19:00 Chloride IV 3 mg/hr .Q0M LUIS 3 mls/hr Titration Protocol Per Protocol Norepinephrine Bitartrate 4 mg 254 mls @ 0 mls/hr 09/03/20 16:30 09/04/20 10:22 / Dextrose IV 4 mcg/min .Q0M LUIS 15.2 mls/hr Administration Protocol Per Protocol Sodium Chloride 1,000 mls @ 30 mls/hr 09/03/20 19:45 09/03/20 21:00 Sodium Chloride 0.9% IV 0 mls/hr .Q24H LUIS Infusion PFSH Acute PFSH: Medical History Anxiety Asthma Depression Hypertension Morbid obesity Restless leg syndrome Surgical History Surgical history unknown Social History Smoking and tobacco status: unknown if ever smoked Alcohol intake: unknown Substance/Drug Use: unknown Vitals/I&O/Wt Last Vital Signs Temp 99.2 F 09/04/20 14:00 Pulse 102 H 09/04/20 15:46 Resp 22 H 09/04/20 15:42 BP 85/52 09/04/20 14:00 Pulse Ox 90 09/04/20 15:39 09/04/20 09/04/20 09/04/20 06:59 14:59 22:59 Intake Total 600.0 / 1386.802 796.923 / 896.923 100 / 896.923 Output Total 500 / 1150 325 / 325 Balance 100 / 236.802 471.923 / 571.923 100 / 571.923 Weight last 48 hrs Weight 248 lb 2.049 oz Weight 248 lb 2 oz Physical Exam Narrative: EXAM NARRATIVE: The patient is currently in the viral ICU on a ventilator. She has a triple-lumen central catheter in the left internal jugular location but approximately half of the catheter is pulled out and looped on the skin of the neck. It is still in use and is still in the internal jugular vein as evidenced by the return of venous blood on aspiration according to nursing. Data Micro: Micro: Microbiology 09/03/20 18:20 Gram Stain - Final Sputum - Endotrac heal Wash 09/03/20 17:24 Blood Culture - Pr eliminary Blood SPECIMEN COLLE NIGHAT 09/03/20 17:11 Blood Culture - Pr eliminary Blood SPECIMEN [facility] A&P Assessment and plan (1) Central line complication: Recent chest x-rays reviewed. Upon initial chest x-ray following line placement it appears that the tip of the catheter was only to the junction of the innominate vein and the superior vena cava. Innominate vein and the superior vena cava. On today's x-ray it appears that the catheter had been further withdrawn around 2 inches with the tip of the catheter now in the inferior aspect of the left internal jugular vein. Procedure note: The existing central line in the left internal jugular vein was thoroughly prepped with Betadine including the ports after all lines were removed from the ports by nursing. A sterile fenestrated drape was then applied. Using sterile technique, a guidewire was passed down the distal port and then the old central line was removed. A new triple-lumen catheter was easily placed over the guidewire and the guidewire was then removed. The the distal port showed good venous blood flow on aspiration. The central line was sewn in place with some interrupted sutures of 3-0 silk. A sterile dressing was applied. Okay to resume use of left internal jugular central line. Status: Acute (2) Acute respiratory distress syndrome (ARDS) due to 2019 novel coronavirus: Status: Acute Consult Attestations Medical Necessity Statement: See admitting service's notation. Coding Level of Care Code Acute Household Appliances Service Technician for [facility] Diagnoses Central line complication T82.9XXA Acute respiratory distress syndrome (ARDS) due to 2019 novel coronavirus U07.1; J80
--- NOTE | 2020-09-04 17:16 | XRR_ITS ---
PROCEDURE INFORMATION: Exam: XR Chest, 1 View Exam date and time: 09/04/2020 5:20 PM Age: 45 years old Clinical indication: Device placement; Picc; Patient HX: Covid +; Additional info: Central line placement TECHNIQUE: Imaging protocol: XR of the chest Views: 1 view. COMPARISON: CR XR chest 1V portable [id number] 09/04/2020 10:42 AM FINDINGS: Tubes, catheters and devices: Endotracheal tube is in satisfactory position with its tip approximately 1.8 cm above the tyesha. Tip of the left jugular central venous catheter is now in the superior vena cava. Lungs: Severe bilateral areas of pulmonary of the opacity in consolidation are not significantly changed from recent previous exams. Pleural space: No pneumothorax is identified. Heart/Mediastinum: Unremarkable. No cardiomegaly. Bones/joints: Unremarkable. XR/XR chest 1V portable [id number] IMPRESSION: 1. No change in bilateral pneumonia. 2. The tip of the left jugular central venous catheter is now in the superior vena cava.
[2020-09-04] MEDS: remdesivir 100 MG in sodium chloride 0.9% (100 ml) 100 ML IV (18:08)
[2020-09-05] VITALS (255 sets, daily range): BP systolic 86–121; BP diastolic 53–82; PULSE 80–116; RESP 22–24; TEMP 36.8–37.6; O2SAT 79–100
[2020-09-05] MEDS: ipratropium-albuterol 3 mL Neb INHALATION ×6 (00:49→20:07)
[2020-09-05] MEDS: famotidine 20 mg/2 mL INJ IVP ×2 (01:06→13:29)
[2020-09-05] MEDS: propofol 1,000 MG/100 ML INJ 20.3 MG IV ×2 (01:15→06:42)
--- NOTE | 2020-09-05 01:36 | PC.NURSE ---
ASSUMING CARE Patient intubated and sedated. Fentanyl drip at 130 mcg/hour, propofol at 30 mcg/kg/min, 3 mg/hour of versed, and 4 mcg/min. Patients propofol tubing changed and propofol paused. Patient was awake and was able to follow commands. Patient blinked eyes twice when asked and squeezed nurses hand on both sides. FiO2 at 95% at change of shift.
--- NOTE | 2020-09-05 04:40 | PC.NURSE ---
FIO2 Patient started off shift at 95% FiO2 on the ventilator. Patient now weaned down to 80% FiO2, but desats easily with any stimulation (minimal sedation decrease, coughing, repositioning, suctioning, and oral care). Patient desats to low to mid 80s with stimulation and will follow commands, but is no easy to redirect or calm.
--- NOTE | 2020-09-05 06:30 | PC.NURSE ---
VENT/SEDATION Patient remains on ventilator with PEEP of 14, rate of 22, and patient has maintained with minimal stimulation at FiO2 of 80%. Sedation has only been minimally adjusted this shift as patient does not tolerate well. Patient will follow commands when sedation is decreased, but get very agitated, resists against soft wrist restraints, and desats quickly to low 80s.
[2020-09-05 06:34] LABS: ABG PCO2 57.1 mmHg (35-45); ABG PH Result 7.37 (7.35-7.45); Base Excess ABG 6.4 mmol/L (-2.0-2.0); Blood Gas Allen Test Pos; Blood Gas Sample Site Radial, right; Blood Gas Sample Type Arterial; HCO3 ABG 32.7 mmol/L (22-26); Oxygen Device VENT; PO2 ABG 55.9 mmHg (80.0-100.0)
[2020-09-05 06:46] LABS: Basophils % 0.1 %; Hemoglobin 9.7 g/dL (11.5-15.3); Lymphocytes # 0.4 10^3/uL (0.8-4.8); Lymphocytes % 4.1 %; Mean Corpuscular HGB Conc 30.3 g/dL (30.0-36.0); Mean Corpuscular Hemoglobin 28.5 pg (28.0-34.0); Mean Corpuscular Volume 94.1 fL (81-99); Mean Platelet Volume 9.6 fL (7.4-10.4); Monocytes # 0.6 10^3/uL (0.2-0.9); Monocytes % 6.1 %; Neutrophils # 8.14 10^3/uL (1.8-7.7); Neutrophils % 88.3 %; Nucleated Red Blood Cells % 0 %; Platelet Count 299 10^3/cmm (130-400); Red Cell Distribution Width 14.9 % (12.1-15.1); White Blood Count 9.2 10^3/uL (4.0-10.0)
--- NOTE | 2020-09-05 06:50 | PC.NURSE ---
SHIFT SUMMARY See previous nursing notes regarding oxygenation. 500 mL cloudy pale yellow urine. When sedation decreased, patient was able to follow commands, but oxygen saturation decreased rapidly.
[2020-09-05] MEDS: budesonide 0.5 mg/2 mL Neb INHALATION ×2 (07:52→20:07)
[2020-09-05 07:58] LABS: C Reactive Protein 57.9 mg/L (0.0-4.9)
[2020-09-05 08:50] LABS: Ferritin 453 ng/mL (15-150); Lactate Dehydrogenase 578 U/L (135-214)
[2020-09-05 10:17] LABS: Alanine Aminotransferase 36 U/L (0-33); Albumin Level 3.4 g/dL (3.5-5.2); Alkaline Phosphatase 76 IU/L (35-105); Aspartate Amino Transferase 43 U/L (0-32); Blood Urea Nitrogen 18 mg/dL (6-20); Calcium 8.2 mg/dL (8.5-10.5); Carbon Dioxide 28 mmol/L (22-29); Chloride 101 mmol/L (98-107); Globulin 3.1 g/dL (1.3-4.6); Glomerular Filtration Rate 133.4 mL/min (90-130); Glucose 151 mg/dL (65-115); Osmolality Calculated 295 mOsm/kg (285-295); Sodium 140 mmol/L (136-145); Total Bilirubin 0.4 mg/dL (0.15-1.2); Total Protein 6.5 g/dL (6.6-8.7)
--- NOTE | 2020-09-05 10:17 | XRR_ITS ---
PROCEDURE INFORMATION: Exam: XR Chest, 1 View Exam date and time: 09/05/2020 11:15 AM Age: 45 years old Clinical indication: Device placement; Other: Og placement; Shortness of breath; Additional info: Respiratory failure TECHNIQUE: Imaging protocol: XR of the chest Views: 1 view. COMPARISON: CR XR chest 1V portable [id number] 09/04/2020 5:31 PM FINDINGS: Tubes, catheters and devices: Endotracheal tube is 0.8 mm above the tyesha. A left central line extends into the SVC NG tube extends into the stomach Lungs: Parenchymal lung densities seen in the bilateral lower lobes. These findings are similar to prior examination.. These findings correspond to pneumonia or pulmonary edema Pleural space: Unremarkable. No pleural effusion. No pneumothorax. Heart/Mediastinum: Unremarkable. No cardiomegaly. Bones/joints: Unremarkable. XR/XR chest 1V portable [id number] IMPRESSION: 1. Stable bilateral lower lobe pneumonia or pulmonary edema 2. Endotracheal tube is above the tyesha. 3. Left central line extends into the SVC. 4. NG tube extends into the stomach.
[2020-09-05] MEDS: propofol 1,000 MG/100 ML INJ 27 MG IV ×3 (10:38→21:00)
[2020-09-05 11:07] LABS: Magnesium 2.7 mg/dL (1.7-2.3)
[2020-09-05] MEDS: sodium chloride 0.9% 1,000 ML 30 ML IV ×2 (12:09→23:41)
--- NOTE | 2020-09-05 13:22 | P.PN_ITS ---
Subjective Subjective: Interval history: 45-year-old female with a past medical history significant for anxiety, depression, hypertension, restless leg syndrome and asthma who presented to the ER on 09/02 during which time she was found to have COVID-19 Infection subsequently discharged on oxygen and Decadron. She will return to the hospital due to progressively worsening respiratory distress. O2 sat was found to be 76%. She was placed on BiPAP, given ceftriaxone, azithromycin and transferred to [facility]. Upon arrival patient was noted to have labored respiration on BiPAP with Fio2 at 100%. ABG drawn showed a PH of 7.42, pCO2 of 46.6, Po2 of 63.8, HCO3 of 29.0. Due to increase work of breath and high risk for decompensation patient was intubated on placed on mechanical ventilation. Remained of labs drawn showed a WBC of 16.4, hgb of 11.3, hct of 35.4 and a platelet count of 268. Sodium of 138, potassium of 4.0, chloride of 98, bicarbonate of 29, BUN of 18 and a creatinine of 0.7. AST of 45, ALT of 30 and ALP of 78. Chest x-ray was obtained post intubation which noted severe bilateral pulmonary opacifications, ET tube at 2 cm above the tyesha and left central line terminated at the junction of the left innominate with the SVC. Patient was continued on mechanical ventilation. She was initiated on deep sedation protocol. Fentanyl comp profile and Versed drip were used. she was found to have severe acute respiratory distress syndrome. On day 2 required ET tube to be changed due to cuff leak. Subsequently was continued on pressure control ventilation. FiO2 requirements remain elevated. Pa02/Fio2 was 68. Initiated on NMB with rocoronium per protocol. Brain wave/TOF monitoring. Likely due to multiple sedative drugs required for deep sedation she developed hypotension requiring levophed to keep MAP greater than 65. Also initially started on broad spectrum abx however low suspicion of underlying bacterial infection. Procalcitonin was noted to be 0.13. Vancomycin and zosyn were stopped and she was monitor off abx. Remdesivir 200 mg IV x 1 was given on day of admission and then subsequently continued on 100 mg iv daily protocol for a total of 5 days. In addition to this she was started on Decadron 6 mg IV daily which was increased to BID. Duonebs were continued with addition of pulmicort 0.5 mg BID. D-dimer was noted to be 0.8-0.9 and thus only a prophylactic dose of lovenox was continued. 09/04 Patient was noted to have cuff leak and thus ET tube was replaced. Continue on vent with sedation. Also continued to require 100% Fio2. Low grade temp -99.2. 09/05 Remained in critical condition overnight. Noted to have oxygen saturation ranging from high 80s to low 90s. Continued on pressure control. Peek plataue pressures ranging remained less than 30. TV ranging from 270s to 400s. Continue to also require Levophed to maitain map over 65. No fever was noted. In AM she was noted to have expiratory sound which was thought to be cuff leak however this was not appearant on vent. NMB was initiated. Medications: Reviewed: Yes Vitals/I&O/Wt Last Vital Signs Temp 98.9 F 09/05/20 12:05 Pulse 94 09/05/20 12:05 Resp 22 H 09/05/20 11:21 BP 106/71 09/05/20 12:05 Pulse Ox 89 L 09/05/20 12:05 09/04/20 09/05/20 09/05/20 22:59 06:59 14:59 Intake Total 495.35 / 1292.273 527.363 / 1819.636 790.931 / 790.931 Output Total 500 / 825 400 / 400 Balance 495.35 / 967.273 27.363 / 994.636 390.931 / 390.931 Weight last 48 hrs Weight 111.901 kg Weight 112.549 kg Physical Exam Narrative: EXAM NARRATIVE: General : intubated on MV HEENT : ET tube in place CVS : NSR Chest : B/L vented sounds ABD : Non-distended Ext: no edema Urinary Catheter Management^: Yepez: Cath Placed During This Visit: no Reason for Continuing Indwelling Catheter: Accurate Measurement of Urinary Output in Critically Ill Patients Data : 09/05/20 04:20 09/05/20 04:20 Micro: Microbiology 09/03/20 18:20 Gram Stain - Final Sputum - Endotracheal Wash Sputum Culture - Preliminary 09/03/20 17:24 Blood Culture - Preliminary Blood NEGATIVE TO DATE 09/03/20 17:11 Blood Culture - Preliminary Blood NEGATIVE TO DATE A&P Assessment and plan (1) Acute respiratory distress syndrome (ARDS) due to 2019 novel coronavirus: Status: Acute Severe ARDS due to COVID-19 pneumonia on mechanical ventilation with underlying hx of Asthma - Non-cardiogenic pulmonary edema Labs: - 09/04 - ABG - PH of 7.33, PCO2 of 56.3, PO2 of 56.2, HCO3 of 29.7 on PS, PEEP 14, Fio2 100% - 09/05 - ABG - 7.37 pCO2 of 57.1, Pao2 of 55.9, HCO3 of 32.7 - D-dimer of 0.89 , Procalcitonin 0.13, LDH of 578, CRP of 57.9, Ferritin 360 -> 453. - Pa02/Fio2 ratio - 68 - Blood culture x 2 - NGTD - Sputum culture -negative Imaging - 09/04 - Chest x-ray -> Moderate pulmonary htn, stable b/l pulmonary infiltrate s, ET 4.5 cm above the tyesha, gaseous distention of stomach. - 09/05 - Chest x-rosemarie - Pending Meds: - Propofol at 40, Versed at 3mg/hr and Fentanyl increased to 150 mcg/hr - Duoneb q2hr scheduled - Pulmicort 0.5 mg BID - Decadron 6 mg IV Daily - Remdesivir 100mg IV daily Plan: Continue current pressure control ventilation, monitor Pplateau pressure < 30, PEEP of 14, RR 22, Fio2 of 80% In light of Pa02/Fio2 - > 68 will initiate on NMB. - Assessed for deep sedation - RASS -> Neg 4 - Started on Rocoronium 0.8/mcg/min - TOF/Brain wave monitor as per protocol to maintain adequate NMB - Will add lubricating eye drops q2hr prn - Goal blood sugar < 180 - Chest x-ray ordered stat now - Pulmonary medicine on board - Will attempt to prone if possible - Increase decadron to 6mg IV BID ( Q6hr glucose monitoring with sliding scale coverage to maintain BS < 180 ) - Repeat Chest x-ray /ABG in am or PRN - Check Inflammatory markers on 09/07 - May consider CTA Chest - once more stable for transport to radiology Hypotension - Prior hx of Hypertension -Likely due to multiple sedatives - Continue Levophed to titrate to maintain MAP> 65 - Central line in place Tranaminitis - Likely due to COVID-19 - AST 41- 43 - ALT - 35 - 36 - Continue daily LFTs Lines/Tubes - ET tube - L. IJ Central line - Yepez - OG Gi ppx - Pepcid 20 mg IV BID DVT ppx - Lovenox 40 mg SQ daily Prognosis - Guarded Attestations Medical Necessity Statement*: Patient continues to be in critical condition. Will require continued hospitalization for management of respiratory failure. Time Spent in Patient Care: Greater than 35 minutes (>than 50% of time spent in counselling and/or direct pt care on unit) . Critical Care Time: Critical Care Time (min): 70 Coding Level of Care Code Acute Supervisor Costuming for [facility] Diagnoses Acute respiratory distress syndrome (ARDS) due to 2019 novel coronavirus U07.1; J80
[2020-09-05] MEDS: dexamethasone 4 mg/mL INJ 6 MG IVP ×2 (13:29→17:22)
[2020-09-05] MEDS: enoxaparin 40 mg/0.4 mL Syringe SUBCUT (13:29)
--- NOTE | 2020-09-05 14:06 | PC.NURSE ---
King started at 1400. Dose/rate verified by lyndsey Rivers RN, BIS 43 at this time, train of 4 currently 4 of 4.
[2020-09-05] MEDS: propofol 1,000 MG/100 ML INJ 33.8 MG IV (14:20)
--- NOTE | 2020-09-05 14:48 | PC.NURSE ---
BIS maintained around 42 this past hour. Train of 4 now 3 of 4. Titrated King up by 10ml/hr, per pharmacy, and verified by Anival Rivers RN.
--- NOTE | 2020-09-05 16:11 | PC.NURSE ---
BIS still in 40-60 range. Train of 4, 4 of 4, last two hours; therefore, increased lou again 10ml each hour, now to 40ml/hr
--- NOTE | 2020-09-05 17:06 | PC.NURSE ---
BIS at 60 this hour, increased versed to 4. Train of 4, at goal-2 of 4, lou left at same rate of 40ml/hr. Pt bathed and turned high up onto left side, desat during process, now maintaining o2 sat of 86 on 100% fio2.
[2020-09-05] MEDS: remdesivir 100 MG in sodium chloride 0.9% (100 ml) 100 ML IV (17:22)
[2020-09-05 18:36] LABS: ABG PCO2 57.9 mmHg (35-45); ABG PH Result 7.36 (7.35-7.45); Arterial Blood Gas Hematocrit 30.7 % (37-47); Base Excess ABG 6.3 mmol/L (-2.0-2.0); Blood Gas Allen Test Pos; Blood Gas Sample Type Arterial; Carboxyhemoglobin 0.9 %THgb (0.4-20.1); HGB O2 Sat 91.6 % (95-100); Ionized Calcium Level - ABG 1.1 mmol/L (1.1-1.4); Methemoglobin 0.9 % (0.4-1.5); Oxygen Saturation ABG 93.3; PO2 ABG 66.1 mmHg (80.0-100.0); Potassium Level - ABG 4.3 mmol/L (3.5-5.0)
[2020-09-05 18:37] LABS: Blood Gas Operator Identificat MONRO; Blood Gas Sample Site Brachial, right; Blood Gas Tidal Volume 0.35; Oxygen Device VENT
--- NOTE | 2020-09-05 19:00 | PC.NURSE ---
Report received, care assumed. Monitor alarms, plan of care et previous orders reviewed. patient supine in bed with HOB at 30 degrees. Fentanyl, levophed, propofol, rocuronium, et versed gtt infusing et titrating to effect. Rocuronium is titrated off TOF at the right facial nerve. BIS monitor present for sedation titration. Patient is orally intubated with an 8.0 ETT secured 26 cm at the lip, see RT flow sheet for vent settings. OGT, placement verified per air bolus currently clamped. Left triple lumen IJ central line, placement verified per x-ray. Bilateral breath sounds per auscultation. Abdomen is large, round but soft with hypo active bowel sounds. Yepez catheter to dependent drainage secured with a STAT lock to the right thigh. Bilateral lower extremity thigh high NIGHAT hose. Please see physical assessment et vital sign flow sheet for details.
--- NOTE | 2020-09-05 20:15 | PC.NURSE ---
TOF performed. 3/4 twitches at pre-isolated site. King increased to 50 ml/ hr. Will continue to monitor.
--- NOTE | 2020-09-05 21:00 | PC.NURSE ---
TOF performed. 1/4 twitches obtained at pre isolated site. Will continue to monitor.
--- NOTE | 2020-09-05 22:00 | PC.NURSE ---
Patient is receiving a continuous Fentanyl gtt for analgesia while receiving a continuous rocuronium gtt.
[2020-09-06] VITALS (112 sets, daily range): BP systolic 87–166; BP diastolic 65–107; PULSE 80–122; RESP 20–92; TEMP 36.6–37.2; O2SAT 85–98
[2020-09-06] MEDS: famotidine 20 mg/2 mL INJ IVP ×2 (00:37→12:31)
[2020-09-06] MEDS: ipratropium-albuterol 3 mL Neb INHALATION ×6 (00:40→23:17)
[2020-09-06] MEDS: propofol 1,000 MG/100 ML INJ 27 MG IV (01:00)
--- NOTE | 2020-09-06 01:00 | PC.NURSE ---
TOF performed. 4/4 twitches. King gtt increased to 60 mL/hr. Will continue to monitor.
--- NOTE | 2020-09-06 02:00 | PC.NURSE ---
TOF performed. 1/4 twitches. King decreased to 50 mL/hr
--- NOTE | 2020-09-06 03:30 | PC.NURSE ---
TOF performed. 0/4 twitches. King gtt decreased to 40 mL/hr.
--- NOTE | 2020-09-06 04:30 | PC.NURSE ---
TOF performed. 1/4 twitches. Will continue to monitor.
[2020-09-06] MEDS: propofol 1,000 MG/100 ML INJ 20.3 MG IV ×3 (04:41→17:54)
[2020-09-06 04:58] LABS: ABG PCO2 53.7 mmHg (35-45); Base Excess ABG 6.6 mmol/L (-2.0-2.0); Blood Gas Allen Test Pos; Blood Gas Sample Site Radial, right; Blood Gas Sample Type Arterial; PO2 ABG 65.3 mmHg (80.0-100.0)
[2020-09-06 05:20] LABS: Basophils % 0.1 %; Hemoglobin 9.3 g/dL (11.5-15.3); Lymphocytes # 0.4 10^3/uL (0.8-4.8); Lymphocytes % 4.9 %; Mean Corpuscular Hemoglobin 28.7 pg (28.0-34.0); Mean Corpuscular Volume 95.7 fL (81-99); Mean Platelet Volume 9.6 fL (7.4-10.4); Monocytes # 0.5 10^3/uL (0.2-0.9); Monocytes % 6.2 %; Neutrophils # 7.16 10^3/uL (1.8-7.7); Neutrophils % 86.4 %; Nucleated Red Blood Cells % 0 %; Platelet Count 335 10^3/cmm (130-400); Red Blood Count 3.24 10^6/uL (4.1-5.3); Red Cell Distribution Width 14.5 % (12.1-15.1); White Blood Count 8.3 10^3/uL (4.0-10.0)
[2020-09-06] MEDS: dexamethasone 4 mg/mL INJ 6 MG IVP ×2 (05:40→17:10)
[2020-09-06 05:45] LABS: Alanine Aminotransferase 52 U/L (0-33); Alkaline Phosphatase 63 IU/L (35-105); Anion Gap 9.9 (5-19); Aspartate Amino Transferase 106 U/L (0-32); Blood Urea Nitrogen 20 mg/dL (6-20); Calcium 7.8 mg/dL (8.5-10.5); Carbon Dioxide 33 mmol/L (22-29); Chloride 104 mmol/L (98-107); Globulin 2.9 g/dL (1.3-4.6); Glomerular Filtration Rate 133.4 mL/min (90-130); Glucose 206 mg/dL (65-115); Osmolality Calculated 305 mOsm/kg (285-295); Potassium 3.9 mmol/L (3.5-5.1); Sodium 143 mmol/L (136-145); Total Bilirubin 0.3 mg/dL (0.15-1.2); Total Protein 5.9 g/dL (6.6-8.7)
[2020-09-06] MEDS: budesonide 0.5 mg/2 mL Neb INHALATION ×2 (08:06→19:36)
[2020-09-06] MEDS: enoxaparin 40 mg/0.4 mL Syringe SUBCUT (12:30)
--- NOTE | 2020-09-06 13:16 | XRR_ITS ---
PROCEDURE INFORMATION: Exam: XR Chest, 1 View Exam date and time: 09/06/2020 1:19 PM Age: 45 years old Clinical indication: Shortness of breath; Additional info: Routine TECHNIQUE: Imaging protocol: XR of the chest Views: Frontal prone view of the chest. COMPARISON: CR (CHEST, ) 09/05/2020 2:54 PM FINDINGS: Tubes, catheters and devices: The endotracheal tube tip is approximately 0.9 mm above the tyesha. The feeding tube enters the stomach with the tip off the limits of the image. Lungs: Increased heterogeneous air space opacities in the bilateral lungs, most confluent in the lateral left mid lung zone. Pleural space: No definite pleural effusion. No pneumothorax. Heart/Mediastinum: The heart size is difficult to estimate secondary to obscuration of the LEFT cardiomediastinal border. Mediastinum: Stable. Vasculature: The left internal jugular venous catheter tip is in the mid SVC. Bones/joints: Stable. XR/XR chest 1V portable [id number] IMPRESSION: 1. Increased bilateral pulmonary infiltrates, progressive pneumonitis not excluded. Clinical correlation is recommended. 2. Endotracheal tube placement as above, recommend retraction.
[2020-09-06 14:13] LABS: Blood Gas Allen Test Pos; Blood Gas Sample Type Arterial
[2020-09-06 14:40] LABS: Arterial Blood Gas Hematocrit 32.7 % (37-47); Base Excess ABG 7.4 mmol/L (-2.0-2.0); Blood Gas Operator Identificat MONRO; HCO3 ABG 35.8 mmol/L (22-26); Oxygen Device VENT; PO2 ABG 56.1 mmHg (80.0-100.0)
[2020-09-06 14:41] LABS: Blood Gas Sample Site Radial, right
[2020-09-06 14:43] LABS: ABG PCO2 73.1 mmHg (35-45)
[2020-09-06] MEDS: remdesivir 100 MG in sodium chloride 0.9% (100 ml) 100 ML IV (17:11)
--- NOTE | 2020-09-06 17:18 | PM.PN ---
Subjective Subjective: Interval history: 45-year-old female with a past medical history significant for anxiety, depression, hypertension, restless leg syndrome and asthma who presented to the ER on 09/02 during which time she was found to have COVID-19 Infection subsequently discharged on oxygen and Decadron. She will return to the hospital due to progressively worsening respiratory distress. O2 sat was found to be 76%. She was placed on BiPAP, given ceftriaxone, azithromycin and transferred to [facility]. Upon arrival patient was noted to have labored respiration on BiPAP with Fio2 at 100%. ABG drawn showed a PH of 7.42, pCO2 of 46.6, Po2 of 63.8, HCO3 of 29.0. Due to increase work of breath and high risk for decompensation patient was intubated on placed on mechanical ventilation. Remained of labs drawn showed a WBC of 16.4, hgb of 11.3, hct of 35.4 and a platelet count of 268. Sodium of 138, potassium of 4.0, chloride of 98, bicarbonate of 29, BUN of 18 and a creatinine of 0.7. AST of 45, ALT of 30 and ALP of 78. Chest x-ray was obtained post intubation which noted severe bilateral pulmonary opacifications, ET tube at 2 cm above the tyesha and left central line terminated at the junction of the left innominate with the SVC. Patient was continued on mechanical ventilation. She was initiated on deep sedation protocol. Fentanyl comp profile and Versed drip were used. she was found to have severe acute respiratory distress syndrome. On day 2 required ET tube to be changed due to cuff leak. Subsequently was continued on pressure control ventilation. FiO2 requirements remain elevated. Pa02/Fio2 was 68. Initiated on NMB with rocoronium per protocol. Brain wave/TOF monitoring. Likely due to multiple sedative drugs required for deep sedation she developed hypotension requiring levophed to keep MAP greater than 65. Also initially started on broad spectrum abx however low suspicion of underlying bacterial infection. Procalcitonin was noted to be 0.13. Vancomycin and zosyn were stopped and she was monitor off abx. Remdesivir 200 mg IV x 1 was given on day of admission and then subsequently continued on 100 mg iv daily protocol for a total of 5 days. In addition to this she was started on Decadron 6 mg IV daily which was increased to BID. Duonebs were continued with addition of pulmicort 0.5 mg BID. D-dimer was noted to be 0.8-0.9 and thus only a prophylactic dose of lovenox was continued. 09/04 Patient was noted to have cuff leak and thus ET tube was replaced. Continue on vent with sedation. Also continued to require 100% Fio2. Low grade temp -99.2. 09/05 Remained in critical condition overnight. Noted to have oxygen saturation ranging from high 80s to low 90s. Continued on pressure control. Peek plataue pressures ranging remained less than 30. TV ranging from 270s to 400s. Continue to also require Levophed to maitain map over 65. No fever was noted. In AM she was noted to have expiratory sound which was thought to be cuff leak however this was not appearant on vent. NMB was initiated. 09/06 Overnight patient was initially transitioned to VC/AC however in am due to poor tidal volume and Pplateau > 30 she was transitioned to Pressure control ventilation. At Fio2 of 80%. Subsequently placed in prone position which was to continue for 16hr. Levophed was weaned off. Continued on propofol, versed and fentanyl for deep sedation. Did not have any fevers overnight. Urine output adequate. Medications: Reviewed: Yes Vitals/I&O/Wt Last Vital Signs Temp 98.9 F 09/06/20 16:00 Pulse 107 H 09/06/20 16:00 Resp 24 H 09/06/20 17:13 BP 139/91 09/06/20 16:00 Pulse Ox 97 09/06/20 16:00 09/06/20 09/06/20 09/06/20 06:59 14:59 22:59 Intake Total 1027.005 / 2824.447 1032.0 / 1032.0 175 / 1207.0 Output Total 1000 / 1600 800 / 800 400 / 1200 Balance 27.005 / 1224.447 232.0 / 232 -225 / 7.0 Weight last 48 hrs Weight 105.46 kg Weight 111.901 kg Physical Exam Narrative: EXAM NARRATIVE: General : intubated on MV HEENT : ET tube in place CVS : NSR Chest : B/L vented sounds ABD : Non-distended Ext: no edema Urinary Catheter Management^: Yepez: Cath Placed During This Visit: no Reason for Continuing Indwelling Catheter: Accurate Measurement of Urinary Output in Critically Ill Patients Data : 09/06/20 03:45 09/06/20 03:45 Micro: Microbiology 09/03/20 18:20 Gram Stain - Final Sputum - Endotracheal Wash Sputum Culture - Final A&P Assessment and plan (1) Acute respiratory distress syndrome (ARDS) due to 2019 novel coronavirus: Status: Acute Severe ARDS due to COVID-19 pneumonia on mechanical ventilation with underlying hx of Asthma - Non-cardiogenic pulmonary edema Labs: - 09/04 - ABG - PH of 7.33, PCO2 of 56.3, PO2 of 56.2, HCO3 of 29.7 on PS, PEEP 14, Fio2 100% - 09/05 - ABG - 7.37 pCO2 of 57.1, Pao2 of 55.9, HCO3 of 32.7 - D-dimer of 0.89 , Procalcitonin 0.13, LDH of 578, CRP of 57.9, Ferritin 360 -> 453. - Pa02/Fio2 ratio - remaining < 100 - Blood culture x 2 - NGTD - Sputum culture -negative Imaging - 09/04 - Chest x-ray -> Moderate pulmonary htn, stable b/l pulmonary infiltrates, ET 4.5 cm above the tyesha, gaseous distention of stomach. - 09/06 - increasing infiltrates, pneumonitis Meds: - Propofol at 40, Versed at 3mg/hr and Fentanyl increased to 150 mcg/hr - Duoneb q6hr scheduled - Pulmicort 0.5 mg BID - Decadron 6 mg IV Daily - Remdesivir 100mg IV daily Plan: Placed in prone position ABG - PH 7.30, pCO2 - 73.1, P02 56.1, HCO3 35.8 - Vent changes made after above ABG, RR increased to 24. - Current - > Pressure control, RR increased to 24, PIP of 31, P.plat of 30, PEEP of 10, FIo2 of 80%, MV of 6.6, Lung compliance 14, airway resistance 12. - Continue to monitor Pplateau q4hr - goal < 30 - Maintain prone for 16hr - Continue NBM with Rocoronium 0.8/mcg/min - Continue TOF/Brain wave monitor as per protocol to maintain adequate NMB - Continue lubricating eye drops q2hr prn while on King - RASS neg 4 - Continue to wean propofol, continue versed/fentanyl - Decadron 6 mg IV BID - Blood sugar goal < 180 - Ferritin/d-dimer/crp/pro-marcela/abg/cbc/bmp in am/ lactic acid - Chest x-ray in am - Follow up on pulmonary medicine input in am Hypotension - improved - Now off levo - Map goal > 65 Tranaminitis - increasing - Likely due to COVID-19 - AST 41- 43 - > 106 - ALT - 35 - 36 -> 52 - Continue daily LFTs Lines/Tubes - ET tube - L. IJ Central line - Yepez - OG Gi ppx - Pepcid 20 mg IV BID DVT ppx - Lovenox 40 mg SQ daily Prognosis - Guarded Attestations Medical Necessity Statement*: Will require further hospitalization for managment of above. Time Spent in Patient Care: Greater than 35 minutes (>than 50% of time spent in counselling and/or direct pt care on unit). Critical Care Time: Critical Care Time (min): 65 Coding Level of Care Code Acute Principal Administrative Clerk for [facility] Fwd Diagnoses Acute respiratory distress syndrome (ARDS) due to 2019 novel coronavirus U07.1; J80
--- NOTE | 2020-09-06 17:42 | PC.NURSE ---
Pt maintained BIS in low 40's every hour today. Train of 4 fluctuated between 1 and 2 of 4. At 1700, train of 4 was 0, therefore titrated King down by 10ml/hr to 40ml/hr, witnessed by Anika COLON. Pt was prone at 1115. Head rotated and repositioned patient every 2 hours with RT. Mostly sinus tach today, was sinus tach prior to paralytic initiation yesterday, now normal sinus. Urine output total, 600ml. Skin continues to be free of breakdown due to very careful consideration and effort. Family updated twice today.
--- NOTE | 2020-09-06 19:15 | PC.NURSE ---
Patient repositioned with nursing staff X3, and RT. No skin breakdown noted.
--- NOTE | 2020-09-06 20:42 | PC.NURSE ---
This RN observed patient lifting head, despite paralytics and sedation medication on board. RN titrated Propofol according to [facility] protocol. When checking MAR this RN found that there was no current protocol for titration of running paralytic. Attempted to contact MD correspondence renew clerk X1.
--- NOTE | 2020-09-06 21:29 | PC.NURSE ---
New Orders: MD Gil utilization management nurse phoned to update on status of patient, and sedation currently running. RN voiced concerns of patient lifting head despite drips running and max limits on hanging drips being reached. RN also consulted MD on no current protocol on the titration or management of drips currently ordered for paralytic Rocuronium. MD gave v/o for Versed drip to be initiated at 3, with a max of 10 in total to be reached as indicated. Rocuronium max is to be at 70mL, and to increase by 10mL Q2HR until therapeutic level reach or max level. Fentanyl drip max is to be at 125mcg/hr. RN clarified that Rocuronium is currently running not by mcg/kg or by mg/kg. But instead is running at mL/hr. No new orders were given, and to proceed with plan of action listed above.
[2020-09-06] MEDS: propofol 1,000 MG/100 ML INJ 33.8 MG IV (23:01)
--- NOTE | 2020-09-06 23:03 | PC.NURSE ---
Train of 4 resulting back at 4/4. Rocuronium titrated to 60. Witnessed by DARLENE Machado.
[2020-09-07] VITALS (87 sets, daily range): BP systolic 94–156; BP diastolic 53–97; PULSE 80–131; RESP 18–35; TEMP 37.1–38; O2SAT 83–96
--- NOTE | 2020-09-07 00:34 | PC.NURSE ---
IV Drips verified with DARLENE Machado and with DARLENE Balderrama.
[2020-09-07] MEDS: propofol 1,000 MG/100 ML INJ 33.8 MG IV ×5 (01:49→21:12)
[2020-09-07] MEDS: famotidine 20 mg/2 mL INJ IVP ×2 (01:49→11:56)
[2020-09-07] MEDS: ipratropium-albuterol 3 mL Neb INHALATION ×5 (03:16→20:17)
[2020-09-07 03:22] LABS: Basophils % 0.1 %; Hematocrit 30.9 % (37.0-47.0); Hemoglobin 9.3 g/dL (11.5-15.3); Lymphocytes # 0.5 10^3/uL (0.8-4.8); Lymphocytes % 5.4 %; Mean Corpuscular HGB Conc 30.1 g/dL (30.0-36.0); Mean Corpuscular Hemoglobin 28.4 pg (28.0-34.0); Mean Corpuscular Volume 94.5 fL (81-99); Mean Platelet Volume 9.6 fL (7.4-10.4); Monocytes # 0.7 10^3/uL (0.2-0.9); Monocytes % 7.2 %; Neutrophils # 8.21 10^3/uL (1.8-7.7); Neutrophils % 83.8 %; Nucleated Red Blood Cells % 0.2 %; Platelet Count 353 10^3/cmm (130-400); Red Blood Count 3.27 10^6/uL (4.1-5.3); Red Cell Distribution Width 14.1 % (12.1-15.1); White Blood Count 9.8 10^3/uL (4.0-10.0)
[2020-09-07 03:42] LABS: D Dimer 1.21 ug/mIFEU (0-0.59)
[2020-09-07 03:56] LABS: Procalcitonin 0.05 ng/mL (0-0.5)
[2020-09-07 04:07] LABS: Alanine Aminotransferase 56 U/L (0-33); Albumin Level 2.8 g/dL (3.5-5.2); Alkaline Phosphatase 54 IU/L (35-105); Anion Gap 12.3 (5-19); Aspartate Amino Transferase 65 U/L (0-32); Blood Urea Nitrogen 24 mg/dL (6-20); C Reactive Protein 18.5 mg/L (0.0-4.9); Calcium 7.6 mg/dL (8.5-10.5); Carbon Dioxide 33 mmol/L (22-29); Chloride 104 mmol/L (98-107); Ferritin 269 ng/mL (15-150); Globulin 2.7 g/dL (1.3-4.6); Glomerular Filtration Rate 172.6 mL/min (90-130); Glucose 188 mg/dL (65-115); Lactate Dehydrogenase 526 U/L (135-214); Osmolality Calculated 309 mOsm/kg (285-295); Potassium 4.3 mmol/L (3.5-5.1); Sodium 145 mmol/L (136-145); Total Bilirubin 0.4 mg/dL (0.15-1.2); Total Protein 5.5 g/dL (6.6-8.7)
--- NOTE | 2020-09-07 04:08 | PC.NURSE ---
Rocuronium paused based on patient no longer in prone position and per MD global expansion sales director orders. V/O for med to be reinitiated if patient exhibits s/s of breathing over vent settings. Versed, Fentanly, and Propofol to continue titirating based on sedation need. Currently patient is resting well.
[2020-09-07 04:38] LABS: ABG PCO2 57.7 mmHg (35-45); Arterial Blood Gas Hematocrit 31.6 % (37-47); Base Excess ABG 9.5 mmol/L (-2.0-2.0); Blood Gas Allen Test Pos; Blood Gas Sample Site Radial, right; Blood Gas Sample Type Arterial; HCO3 ABG 35.9 mmol/L (22-26); Oxygen Device VENT; PO2 ABG 53.4 mmHg (80.0-100.0)
[2020-09-07] MEDS: dexamethasone 4 mg/mL INJ 6 MG IVP ×2 (05:40→18:25)
[2020-09-07] MEDS: propofol 1,000 MG/100 ML INJ 27 MG IV (06:31)
--- NOTE | 2020-09-07 07:00 | XR_ITS ---
WS: [id number] Exam: XR chest 1V portable [id number] Date/Time of Exam: 09/07/2020 7:05 AM Reason For Exam: vent Comparison 09/06/2020. Extensive consolidating infiltrates throughout both lungs show minimal improvement. The ET tube ends about 2 cm above the tyesha unchanged in position. The tube is directed toward the right mainstem bro nchus. The tube should be retracted approximately 2 to 3 cm for optimal position. A left IJ catheter remains in place in satisfactory position. No pneumothorax. Heart size is normal. An enteric tube ext ends into the stomach but the tip is not visible. XR/XR chest 1V portable [id number] IMPRESSION: 1. Extensive consolidating infiltrates throughout both lungs showing minimal im provement since previous study. 2. The ET tube ends about 2 cm above the tyesha. The lungs are well ventilated however the tube should be withdrawn approximately 2 to 3 cm for optimal positi on. 3. Left IJ catheter remaining in good position.
[2020-09-07] MEDS: budesonide 0.5 mg/2 mL Neb INHALATION ×2 (08:00→20:17)
[2020-09-07] MEDS: propofol 1,000 MG/100 ML INJ 40.5 MG IV (09:02)
[2020-09-07] MEDS: artificial tears Op Soln 15 mL Btl 1 DROP EYE-BOTH (09:07)
[2020-09-07 11:48] LABS: Glucose Point of Care 189 mg/dL (70-110)
[2020-09-07] MEDS: enoxaparin 40 mg/0.4 mL Syringe SUBCUT (11:56)
[2020-09-07 15:00] LABS: Alveolar-Arterial Oxygen Gradi 43.8 mmHg (5-10); Arterial Blood Gas Hematocrit 31.3 % (37-47); Blood Gas Allen Test Pos; Blood Gas Operator Identificat CAK; Blood Gas Sample Site Radial, left; Blood Gas Sample Type Arterial; HCO3 ABG 36.6 mmol/L (22-26); HGB O2 Sat 94.3 % (95-100); Ionized Calcium Level - ABG 1.1 mmol/L (1.1-1.4); Oxygen Device VENT; Oxygen Saturation ABG 96.2; PO2 ABG 74.3 mmHg (80.0-100.0); Potassium Level - ABG 4.2 mmol/L (3.5-5.0); Total Hemoglobin 10.2 g/dL (12-16)
--- NOTE | 2020-09-07 15:03 | P.PN_ITS ---
Subjective Subjective: Interval history: 45-year-old female with a past medical history significant for anxiety, depression, hypertension, restless leg syndrome and asthma who presented to the ER on 09/02 during which time she was found to have COVID-19 Infection subsequently discharged on oxygen and Decadron. She will return to the hospital due to progressively worsening respiratory distress. O2 sat was found to be 76%. She was placed on BiPAP, given ceftriaxone, azithromycin and transferred to [facility]. Upon arrival patient was noted to have labored respiration on BiPAP with Fio2 at 100%. ABG drawn showed a PH of 7.42, pCO2 of 46.6, Po2 of 63.8, HCO3 of 29.0. Due to increase work of breath and high risk for decompensation patient was intubated on placed on mechanical ventilation. Remained of labs drawn showed a WBC of 16.4, hgb of 11.3, hct of 35.4 and a platelet count of 268. Sodium of 138, potassium of 4.0, chloride of 98, bicarbonate of 29, BUN of 18 and a creatinine of 0.7. AST of 45, ALT of 30 and ALP of 78. Chest x-ray was obtained post intubation which noted severe bilateral pulmonary opacifications, ET tube at 2 cm above the tyesha and left central line terminated at the junction of the left innominate with the SVC. Patient was continued on mechanical ventilation. She was initiated on deep sedation protocol. Fentanyl comp profile and Versed drip were used. she was found to have severe acute respiratory distress syndrome. On day 2 required ET tube to be changed due to cuff leak. Subsequently was continued on pressure control ventilation. FiO2 requirements remain elevated. Pa02/Fio2 was 68. Initiated on NMB with rocoronium per protocol. Brain wave/TOF monitoring. Likely due to multiple sedative drugs required for deep sedation she developed hypotension requiring levophed to keep MAP greater than 65. Also initially started on broad spectrum abx however low suspicion of underlying bacterial infection. Procalcitonin was noted to be 0.13. Vancomycin and zosyn were stopped and she was monitor off abx. Remdesivir 200 mg IV x 1 was given on day of admission and then subsequently continued on 100 mg iv daily protocol for a total of 5 days. In addition to this she was started on Decadron 6 mg IV daily which was increased to BID. Duonebs were continued with addition of pulmicort 0.5 mg BID. D-dimer was noted to be 0.8-0.9 and thus only a prophylactic dose of lovenox was continued. 09/04 Patient was noted to have cuff leak and thus ET tube was replaced. Continue on vent with sedation. Also continued to require 100% Fio2. Low grade temp -99.2. 09/05 Remained in critical condition overnight. Noted to have oxygen saturation ranging from high 80s to low 90s. Continued on pressure control. Peek plataue pressures ranging remained less than 30. TV ranging from 270s to 400s. Continue to also require Levophed to maitain map over 65. No fever was noted. In AM she was noted to have expiratory sound which was thought to be cuff leak however this was not appearant on vent. NMB was initiated. 09/06 Overnight patient was initially transitioned to VC/AC however in am due to poor tidal volume and Pplateau > 30 she was transitioned to Pressure control ventilation. At Fio2 of 80%. Subsequently placed in prone position which was to continue for 16hr. Levophed was weaned off. Continued on propofol, versed and fentanyl for deep sedation. Did not have any fevers overnight. Urine output adequate. 09/07 Patients vent mode was changed to cmv overnight. Repeat had noted hypercapnia however am abg showed worsening hypoxemia. No fever or chills. No nausea or vomiting. Medications: Reviewed: Yes Vitals/I&O/Wt Last Vital Signs Temp 98.9 F 09/07/20 08:30 Pulse 82 09/07/20 13:15 Resp 24 H 09/07/20 13:53 BP 112/74 09/07/20 13:15 Pulse Ox 92 09/07/20 13:15 09/07/20 09/07/20 09/07/20 06:59 14:59 22:59 Intake Total 600.426 / 2360.537 309.312 / 309.312 Output Total 750 / 1950 350 / 350 Balance -149.574 / 410.537 -40.688 / -40.688 Weight last 48 hrs Weight 106.2 kg Weight 105.46 kg Physical Exam Narrative: EXAM NARRATIVE: General : intubated on MV HEENT : ET tube in place CVS : NSR Chest : B/L vented sounds ABD : Non-distended Ext: no edema Urinary Catheter Management^: Yepez: Cath Placed During This Visit: no Reason for Continuing Indwelling Catheter: Accurate Measurement of Urinary Output in Critically Ill Patients Data : 09/07/20 03:00 09/07/20 03:00 Micro: Microbiology 09/03/20 18:20 Gram Stain - Final Sputum - Endotracheal Wash Sputum Culture - Final A&P Assessment and plan (1) Acute respiratory distress syndrome (ARDS) due to 2019 novel coronavirus: Status: Acute Severe ARDS due to COVID-19 pneumonia on mechanical ventilation with underlying hx of Asthma - Non-cardiogenic pulmonary edema Labs: - 09/04 - ABG - PH of 7.33, PCO2 of 56.3, PO2 of 56.2, HCO3 of 29.7 on PS, PEEP 14, Fio2 100% - 09/05 - ABG - 7.37 pCO2 of 57.1, Pao2 of 55.9, HCO3 of 32.7 - D-dimer of 0.89 , Procalcitonin 0.13- > 0.5, LDH of 578, CRP of 57.9, Ferritin 360 -> 453. - Pa02/Fio2 ratio - remaining < 100 - Blood culture x 2 - NGTD - Sputum culture -negative Imaging - 09/04 - Chest x-ray -> Moderate pulmonary htn, stable b/l pulmonary i nfiltrates, ET 4.5 cm above the tyesha, gaseous distention of stomach. - 09/06 - increasing infiltrates, pneumonitis - 09/07 - Chest x-ray - Extensive consolidating infiltrates throughout both lungs showing minimal improvement since previous study Meds: - Propofol at 40, Versed at 3mg/hr and Fentanyl increased to 150 mcg/hr - Duoneb q6hr scheduled - Pulmicort 0.5 mg BID - Decadron 6 mg IV Daily - Remdesivir 100mg IV daily Plan: ABG : 7.50, pCO2 47, P02 74.3, HCO3 36.6 on PCV + RR 24, MV 8.9, PIP 32, on FIO2 of 80% - Plan to continue current settings - D/w Pulmonary - Artificial tears q2hr - Continue to monitor Pplateau q4hr - goal < 30 - Place in Prone again today for 16hr - Resume NBM with Rocoronium 0.8/mcg/min - Continue TOF/Brain wave monitor as per protocol to maintain adequate NMB - RASS neg 4 - Continue to wean propofol, continue versed/fentanyl - Decadron 6 mg IV BID - Blood sugar goal < 180 - Will plan to repeat chest x-ray and ABG in am - Of note ET tube retracted 1cm Hypotension - improved - Now off levo - Map goal > 65 Tranaminitis - Likely due to COVID-19 - AST 41- 43 - > 106 - > 65 - ALT - 35 - 36 -> 52 - > 56 - Continue daily LFTs Lines/Tubes - ET tube - L. IJ Central line - Yepez - OG Gi ppx - Pepcid 20 mg IV BID DVT ppx - Lovenox 40 mg SQ daily Prognosis - Guarded Attestations Medical Necessity Statement*: Continue hospitalization for management of respiratory failure due to covid19 requring vent Time Spent in Patient Care: Greater than 35 minutes (>than 50% of time spent in counselling and/or direct pt care on unit) . Critical Care Time: Critical Care Time (min): 50 Coding Level of Care Code Acute National Sales Associate for [employer] Diagnoses Acute respiratory distress syndrome (ARDS) due to 2019 novel coronavirus U07.1; J80
[2020-09-07 17:17] LABS: Glucose Point of Care 173 mg/dL (70-110)
[2020-09-07] MEDS: remdesivir 100 MG in sodium chloride 0.9% (100 ml) 100 ML IV (18:26)
--- NOTE | 2020-09-07 21:22 | PM.PN ---
Subjective Subjective: Interval history: Patient paralyzed and proned today evening After first proning session FiO2 requirement came down Improving LFTs and inflammatory markers Medications: Reviewed: Yes Vitals/I&O/Wt Last Vital Signs Temp 100.4 F H 09/07/20 16:00 Pulse 116 H 09/07/20 20:18 Resp 21 H 09/07/20 20:20 BP 132/80 09/07/20 18:30 Pulse Ox 89 L 09/07/20 20:18 09/07/20 09/07/20 09/07/20 06:59 14:59 22:59 Intake Total 600.426 / 2360.537 409.312 / 409.312 456.847 / 866.159 Output Total 750 / 1950 350 / 350 Balance -149.574 / 410.537 59.312 / 59.312 456.847 / 516.159 Weight last 48 hrs Weight 234 lb 2.095 oz Weight 232 lb 8 oz Physical Exam Narrative: EXAM NARRATIVE: PHYSICAL EXAM: General: lying in bed, sedated and intubated. HEENT:NCAT, PERRLA, EOMI Neck: Supple Lungs: Bilateral diffuse crackles and coarse rhonchi Heart: s1/s2, RRR Abd: Obese, soft, NT, ND, BS + Normoactive Extremities: No edema SECURITY GUARD DISPATCHER: sedated and limited SECURITY GUARD DISPATCHER exam possible. SKIN: no rash LDA: # CVC: Left IJ 09/03/2020 # Fernandes: 09/03/2020 Urinary Catheter Management^: Fernandes: Cath Placed During This Visit: no Reason for Continuing Indwelling Catheter: Accurate Measurement of Urinary Output in Critically Ill Patients Data : 09/07/20 03:00 09/07/20 03:00 A&P Assessment and plan (1) Acute respiratory distress syndrome (ARDS) due to 2019 novel coronavirus: Status: Acute (2) Asthma: Status: Acute Qualifiers: Asthma severity: unspecified severity Asthma persistence: unspecified Asthma complication type: unspecified Qualified Code(s): J45.909 - Unspecified asthma, uncomplicated (3) HTN (hypertension): Status: Acute Qualifiers: Hypertension type: unspecified Qualified Code(s): I10 - Essential (primary) hypertension (4) Ventilator dependent: Status: Acute (5) Acute respiratory failure with hypoxia: Status: Acute (6) Morbid obesity: Status: Acute 45-year-old female with a PMH significant for anxiety, depression, hypertension, restless leg syndrome and asthma who presented to the outside ER on 09/02, found to have COVID-19 Infection subsequently discharged on oxygen and Decadron and returned to hospital for progressively worsening respiratory failure admitted to viral ICU for management of acute hypoxemic respiratory failure secondary to acute respiratory distress syndrome due to COVID-19 pneumonia requiring intubation and mechanical ventilation. NEURO: # Sedation -Sedation with drips fentanyl 150 MCG/hr, Versed 2 mg/hr, and taper down propofol -Paralyzed with rocuronium -Prone for second 16-hour session PULM: #Acute hypoxic and hypercapneic respiratory failure secondary to ARDS due to COVID pna #Respiratory status worsened by contribution from asthma exacerbation -Intubated on 09/02/2020 -Currently on pressure control mode PIP 31/PEEP 12/FiO2 60% and minute ventilation 6.2 L -Recommended -DuoNeb nebulization every 4 hours and Pulmicort 0.5 twice daily -Most recent ABG on pressure control mode 30 PIP, PEEP 12, rate 24, inspiratory time 0.95 seconds and FiO2 60% - 7.50/47/74/30 6/95% -If hypoxia is persistent this might on maximum settings recommended starting on paralytic and prone -Today second 16-hour proning session -CXR: Extensive consolidating infiltrates throughout both lungs showing minimal improvement since previous study. -Improving inflammatory markers -Completed remdesivir and continue dexamethasone daily CVS: -Hemodynamically stable -Recommended to taper down propofol -Monitor heart rate and blood pressure -Please send for BNP and echo GI: -N.p.o. - -H2 chasidy daily for GI prophylaxis -Improving LFTs RENAL: -Renal functions normal -Electrolytes within normal limits -Send for magnesium, phosphorus, lactic acid and CK -Monitor input output -Continue fernandes cath -Avoid nephrotoxins -Monitor BUN/creatinine and electrolytes and supplement accordingly to keep k>4, Mg >2 HEM: H&H stable Plts stable,will trend Coags stable ENDO: -No active issues -If sugars and CMP are high-start on scale coverage ID: #Severe sepsis secondary to COVID pna -Afebrile and normal WBC -Off antibx -Procalcitonin - 0.05 -If patient spikes fever or WBC worsens please send for pancultures -BC,UA,Sputum culture and start on broad-spectrum antibiotics vancomycin and cefepime. Prognosis: Critical Disposition: Remains in ICU Code: Full code Plan of care and recommendations conveyed to Dr. Mohamud hospitalist on the case, RN and RT ICU CHECKLIST: Problem list updated Verbal orders reviewed and signed Analgesia: Fentanyl Glycemic Control: None Nutrition: N.p.o. Restraint Renewal (within 24 hrs): Yes Ulcer Prophylaxis: H2 chasidy yes Chemical Thromboprophylaxis: Prophylaxis: Lovenox Mechanical Thromboprophylaxis: Yes Need for Central line: Yes requiring any infusions sedation and paralytics Need for Fernandes catheter: Yes for urine output monitoring Critical Care Time (No Overlap): 45 min This patient has a high probability of sudden, clinically significant deterioration, which requires the highest level of physician preparedness to intervene urgently. I managed/supervised life or organ supporting interventions that required frequent physician assessment. I devoted my full attention in the ICU to the direct care of this patient for the period of time indicated above. Time I spent with family or surrogate(s) is included only if the patient was incapable of providing necessary information or participating in decision making. Time devoted to teaching and to any procedures I billed separately is not included. Services Provided: Telemetry review Mechanical Ventilation Hemodynamic interpretation, assessment and management Review and interpretation of CXR Review and interpretation of lab values Review and interpretation of microbiologic data and culture results Review of medications and administration Review and interpretation of Nutrition requirements and management Discussion of management with other consultants and services Clinical update to family members Attestations Medical Necessity Statement*: Acute hypoxic respiratory failure due to ARDS secondary to COVID-19 pneumonia requiring mechanical intubation Coding Level of Care Code Established 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
[2020-09-08] VITALS (69 sets, daily range): BP systolic 98–141; BP diastolic 54–93; PULSE 82–112; RESP 18–22; TEMP 37.1–37.3; O2SAT 87–97
[2020-09-08] MEDS: ipratropium-albuterol 3 mL Neb INHALATION ×6 (00:01→19:40)
[2020-09-08] MEDS: propofol 1,000 MG/100 ML INJ 33.8 MG IV ×8 (00:09→22:33)
[2020-09-08] MEDS: famotidine 20 mg/2 mL INJ IVP ×2 (00:10→12:51)
--- NOTE | 2020-09-08 00:57 | PC.NURSE ---
Train of 4 score 4/4. Verified with second Karol, RN. See MAR flowsheet for titration
[2020-09-08] MEDS: dexamethasone 4 mg/mL INJ 6 MG IVP (06:22)
[2020-09-08 07:31] LABS: ABG PCO2 53.3 mmHg (35-45); ABG PH Result 7.45 (7.35-7.45); Base Excess ABG 11.5 mmol/L (-2.0-2.0); Blood Gas Allen Test Pos; Blood Gas Operator Identificat CAK; Blood Gas Sample Site Radial, left; Blood Gas Sample Type Arterial; Oxygen Device VENT; PO2 ABG 73.8 mmHg (80.0-100.0)
[2020-09-08] MEDS: artificial tears Op Soln 15 mL Btl 1 DROP EYE-BOTH ×3 (08:15→14:00)
[2020-09-08] MEDS: budesonide 0.5 mg/2 mL Neb INHALATION ×2 (08:38→19:40)
[2020-09-08 09:00] LABS: Hematocrit 30.1 % (37.0-47.0); Hemoglobin 8.9 g/dL (11.5-15.3); Mean Corpuscular HGB Conc 29.6 g/dL (30.0-36.0); Mean Corpuscular Hemoglobin 28.7 pg (28.0-34.0); Mean Corpuscular Volume 97.1 fL (81-99); Mean Platelet Volume 9.7 fL (7.4-10.4); Platelet Count 395 10^3/cmm (130-400); Red Cell Distribution Width 14.4 % (12.1-15.1); White Blood Count 9.2 10^3/uL (4.0-10.0)
[2020-09-08 09:15] LABS: D Dimer 1.32 ug/mIFEU (0-0.59)
[2020-09-08 09:24] LABS: Alanine Aminotransferase 51 U/L (0-33); Albumin Level 2.8 g/dL (3.5-5.2); Alkaline Phosphatase 51 IU/L (35-105); Anion Gap 9.9 (5-19); Aspartate Amino Transferase 39 U/L (0-32); Blood Urea Nitrogen 25 mg/dL (6-20); C Reactive Protein 16.5 mg/L (0.0-4.9); Calcium 7.7 mg/dL (8.5-10.5); Carbon Dioxide 35 mmol/L (22-29); Chloride 104 mmol/L (98-107); Ferritin 219 ng/mL (15-150); Globulin 2.7 g/dL (1.3-4.6); Glomerular Filtration Rate 133.4 mL/min (90-130); Glucose 156 mg/dL (65-115); Lactate Dehydrogenase 498 U/L (135-214); Osmolality Calculated 306 mOsm/kg (285-295); Potassium 4.9 mmol/L (3.5-5.1); Sodium 144 mmol/L (136-145); Total Bilirubin 0.5 mg/dL (0.15-1.2); Total Protein 5.5 g/dL (6.6-8.7)
[2020-09-08 09:32] LABS: Magnesium 2.2 mg/dL (1.7-2.3); NT Pro B Type Natriuretic Pept 73 pg/mL (0-125); Phosphorus 2.7 mg/dL (2.5-4.5)
[2020-09-08 09:55] LABS: Absolute Segmented Neutrophil 7.5 10/cmm (1.6-7.1); Band Neutrophils Absolute 0.1 10^3/cmm (0.0-1.2); Lymphocytes 7 %; Monocytes Absolute 0.7 10^3/cmm (0.1-0.6); Segmented Neutrophils 81 %; Total Cells Counted 100 (0-100)
[2020-09-08 09:58] LABS: Absolute Neutrophil 7.5 10^3/cmm (1.4-6.5); Anisocytosis 1+; Platelet Estimate Normal (Normal)
[2020-09-08 10:03] LABS: Creatine Phosphokinase 2196 U/L (26-192)
[2020-09-08 10:10] LABS: Eosinophils 0 %
[2020-09-08 11:21] LABS: Glucose Point of Care 187 mg/dL (70-110)
[2020-09-08] MEDS: enoxaparin 40 mg/0.4 mL Syringe SUBCUT (12:51)
[2020-09-08] MEDS: FUROsemide 10 mg/mL SDV 2mL 20 MG IVP (15:20)
--- NOTE | 2020-09-08 15:48 | P.PN_ITS ---
Subjective Subjective: Interval history: 45-year-old female with a past medical history significant for anxiety, depression, hypertension, restless leg syndrome and asthma who presented to the ER on 09/02 during which time she was found to have COVID-19 Infection subsequently discharged on oxygen and Decadron. She will return to the hospital due to progressively worsening respiratory distress. O2 sat was found to be 76%. She was placed on BiPAP, given ceftriaxone, azithromycin and transferred to [facility]. Upon arrival patient was noted to have labored respiration on BiPAP with Fio2 at 100%. ABG drawn showed a PH of 7.42, pCO2 of 46.6, Po2 of 63.8, HCO3 of 29.0. Due to increase work of breath and high risk for decompensation patient was intubated on placed on mechanical ventilation. Remained of labs drawn showed a WBC of 16.4, hgb of 11.3, hct of 35.4 and a platelet count of 268. Sodium of 138, potassium of 4.0, chloride of 98, bicarbonate of 29, BUN of 18 and a creatinine of 0.7. AST of 45, ALT of 30 and ALP of 78. Chest x-ray was obtained post intubation which noted severe bilateral pulmonary opacifications, ET tube at 2 cm above the tyesha and left central line terminated at the junction of the left innominate with the SVC. Patient was continued on mechanical ventilation. She was initiated on deep sedation protocol. Fentanyl comp profile and Versed drip were used. she was found to have severe acute respiratory distress syndrome. On day 2 required ET tube to be changed due to cuff leak. Subsequently was continued on pressure control ventilation. FiO2 requirements remain elevated. Pa02/Fio2 was 68. Initiated on NMB with rocoronium per protocol. Brain wave/TOF monitoring. Likely due to multiple sedative drugs required for deep sedation she developed hypotension requiring levophed to keep MAP greater than 65. Also initially started on broad spectrum abx however low suspicion of underlying bacterial infection. Procalcitonin was noted to be 0.13. Vancomycin and zosyn were stopped and she was monitor off abx. Remdesivir 200 mg IV x 1 was given on day of admission and then subsequently continued on 100 mg iv daily protocol for a total of 5 days. In addition to this she was started on Decadron 6 mg IV daily which was increased to BID. Duonebs were continued with addition of pulmicort 0.5 mg BID. D-dimer was noted to be 0.8-0.9 and thus only a prophylactic dose of lovenox was continued. 09/04 Patient was noted to have cuff leak and thus ET tube was replaced. Continue on vent with sedation. Also continued to require 100% Fio2. Low grade temp -99.2. 09/05 Remained in critical condition overnight. Noted to have oxygen saturation ranging from high 80s to low 90s. Continued on pressure control. Peek plataue pressures ranging remained less than 30. TV ranging from 270s to 400s. Continue to also require Levophed to maitain map over 65. No fever was noted. In AM she was noted to have expiratory sound which was thought to be cuff leak however this was not appearant on vent. NMB was initiated. 09/06 Overnight patient was initially transitioned to VC/AC however in am due to poor tidal volume and Pplateau > 30 she was transitioned to Pressure control ventilation. At Fio2 of 80%. Subsequently placed in prone position which was to continue for 16hr. Levophed was weaned off. Continued on propofol, versed and fentanyl for deep sedation. Did not have any fevers overnight. Urine output adequate. 09/07 Patients vent mode was changed to cmv overnight. Repeat had noted hypercapnia however am abg showed worsening hypoxemia. No fever or chills. No nausea or vomiting. 09/08 Patient was prone last evening which she tolerated for 16 hours. FiO2 was decreased to 50%. She noted have slightly decreased urine output. low grade fevers overnight. Medications: Reviewed: Yes Vitals/I&O/Wt Last Vital Signs Temp 99.2 F 09/08/20 12:00 Pulse 98 09/08/20 15:14 Resp 20 H 09/08/20 15:10 BP 129/77 09/08/20 14:00 Pulse Ox 90 09/08/20 15:09 09/08/20 09/08/20 09/08/20 06:59 14:59 22:59 Intake Total 938.710 / 1904.869 610.179 / 610.179 Output Total 1050 / 1400 500 / 500 Balance -111.290 / 504.869 110.179 / 110.179 Weight last 48 hrs Weight 106.1 kg Weight 106.2 kg Physical Exam Narrative: EXAM NARRATIVE: General : intubated on MV HEENT : ET tube in place CVS : NSR Chest : B/L vented sounds ABD : Non-distended Ext: no edema Urinary Catheter Management^: Yepez: Cath Placed During This Visit: no Reason for Continuing Indwelling Catheter: Accurate Measurement of Urinary Output in Critically Ill Patients Data : 09/08/20 08:15 09/08/20 08:15 A&P Assessment and plan (1) Acute respiratory distress syndrome (ARDS) due to 2019 novel coronavirus: Status: Acute Severe ARDS due to COVID-19 pneumonia on mechanical ventilation with underlying hx of Asthma - Non-cardiogenic pulmonary edema Labs: - 09/04 - ABG - PH of 7.33, PCO2 of 56.3, PO2 of 56.2, HCO3 of 29.7 on PS, PEEP 14, Fio2 100% - 09/05 - ABG - 7.37 pCO2 of 57.1, Pao2 of 55.9, HCO3 of 32.7 - D-dimer of 0.89 , Procalcitonin 0.13- > 0.5, LDH of 578, CRP of 57.9, Ferritin 360 -> 453. - Pa02/Fio2 ratio - remaining < 100 - Blood culture x 2 - NGTD - Sputum culture -negative Imaging - 09/04 - Chest x-ray -> Moderate pulmonary htn, stable b/l pulmonary infiltrates, ET 4.5 cm above the tyesha, gaseous distention of stomach. - 09/06 - increasing infiltrates, pneumonitis - 09/07 - Chest x-ray - Extensive consolidating infiltrates throughout both johnathon ngs showing minimal improvement since previous study Meds: - Propofol at 40, Versed at 3mg/hr and Fentanyl increased to 150 mcg/hr - Duoneb q6hr scheduled - Pulmicort 0.5 mg BID - Decadron 6 mg IV Daily - Remdesivir 100mg IV daily Plan: ABG : 7.45, pCO2 of 53.3, PO2 of 73.8 and a bicarb of 37. patient's FiO2 was decreased to 50% - D/w Pulmonary - Artificial tears q2hr - Continue to monitor Pplateau q4hr - goal < 30 - Place in Prone again today for 16hr - 3/3 session today - Resume NBM with Rocoronium 0.8/mcg/min - Continue TOF/Brain wave monitor as per protocol to maintain adequate NMB - RASS neg 4 - Continue to wean propofol, continue versed/fentanyl - Decadron 6 mg IV BID - Changed to daily - Blood sugar goal < 180 - Will plan to repeat chest x-ray and ABG in am - Lasix 20 mg IV x 1 today +3L balance since admit - D/w Pulmonary medicine Rhabdomyolysis - CPK elevated - Possibly due to propofol/lou - Repeat CPK in am Tranaminitis - Stable - Likely due to COVID-19 - AST 41- 43 - > 106 - > 65 - ALT - 35 - 36 -> 52 - > 56 - Continue daily LFTs Lines/Tubes - ET tube - L. IJ Central line - Yepez - OG GI ppx - Pepcid 20 mg IV BID DVT ppx - Lovenox 40 mg SQ daily Prognosis - Guarded Attestations Medical Necessity Statement*: Continue hospitalization for management of vent associated respiratory failure due to COVID-19 pneumonia Time Spent in Patient Care: Greater than 35 minutes (>than 50% of time spent in counselling and/or direct pt care on unit) . Critical Care Time: Critical Care Time (min): 45 Coding Level of Care Code Acute Assistant Winemaker for g Fwd Diagnoses Acute respiratory distress syndrome (ARDS) due to 2019 novel coronavirus U07.1; J80
[2020-09-08 16:55] LABS: Glucose Point of Care 199 mg/dL (70-110)
[2020-09-08] MEDS: acetaminophen 650 mg Supp PR (19:28)
--- NOTE | 2020-09-08 19:40 | PC.NURSE ---
Patient found to be breathing over vent settings. TO4 scoring 4/4. Verified findings with second RN Marilee. See MAR flowsheet for med titrations
[2020-09-09] VITALS (68 sets, daily range): BP systolic 93–131; BP diastolic 51–79; PULSE 81–109; RESP 18–22; TEMP 36.9–38.2; O2SAT 85–97
[2020-09-09] MEDS: ipratropium-albuterol 3 mL Neb INHALATION ×5 (00:10→19:31)
[2020-09-09] MEDS: propofol 1,000 MG/100 ML INJ 33.8 MG IV ×4 (01:31→11:23)
[2020-09-09 03:57] LABS: ABG PCO2 54.5 mmHg (35-45); ABG PH Result 7.45 (7.35-7.45); Arterial Blood Gas Hematocrit 30.4 % (37-47); Base Excess ABG 12.5 mmol/L (-2.0-2.0); Blood Gas Allen Test Pos; Blood Gas Sample Type Arterial; Carboxyhemoglobin 1.4 %THgb (0.4-20.1); HCO3 ABG 38.2 mmol/L (22-26); Ionized Calcium Level - ABG 1.1 mmol/L (1.1-1.4); Methemoglobin 0.8 % (0.4-1.5); Oxygen Saturation ABG 92.1; PO2 ABG 61.4 mmHg (80.0-100.0); Potassium Level - ABG 6.3 mmol/L (3.5-5.0); Total Hemoglobin 9.9 g/dL (12-16)
[2020-09-09 03:58] LABS: Alveolar-Arterial Oxygen Gradi 29.7 mmHg (5-10); Blood Gas Operator Identificat HARKR; Blood Gas Sample Site Radial, left; Oxygen Device VENT
[2020-09-09 04:09] LABS: Glucose Point of Care 336 mg/dL (70-110)
[2020-09-09] MEDS: famotidine 20 mg/2 mL INJ IVP ×2 (04:51→13:41)
[2020-09-09 06:51] LABS: Basophils % 0.2 %; Eosinophils % 0.3 %; Hematocrit 33.9 % (37.0-47.0); Hemoglobin 9.9 g/dL (11.5-15.3); Lymphocytes % 8.3 %; Mean Corpuscular HGB Conc 29.2 g/dL (30.0-36.0); Mean Corpuscular Hemoglobin 28.9 pg (28.0-34.0); Mean Corpuscular Volume 98.8 fL (81-99); Mean Platelet Volume 9.7 fL (7.4-10.4); Monocytes # 0.7 10^3/uL (0.2-0.9); Monocytes % 5.4 %; Neutrophils # 9.46 10^3/uL (1.8-7.7); Neutrophils % 78.8 %; Nucleated Red Blood Cells # 0.1 /100WBC; Nucleated Red Blood Cells % 0.9 %; Platelet Count 390 10^3/cmm (130-400); Red Blood Count 3.43 10^6/uL (4.1-5.3); Red Cell Distribution Width 14.7 % (12.1-15.1)
[2020-09-09 07:05] LABS: Alanine Aminotransferase 51 U/L (0-33); Albumin Level 2.9 g/dL (3.5-5.2); Alkaline Phosphatase 52 IU/L (35-105); Anion Gap 11.2 (5-19); Aspartate Amino Transferase 34 U/L (0-32); Blood Urea Nitrogen 27 mg/dL (6-20); Calcium 7.9 mg/dL (8.5-10.5); Carbon Dioxide 36 mmol/L (22-29); Chloride 99 mmol/L (98-107); Globulin 2.8 g/dL (1.3-4.6); Glomerular Filtration Rate 172.6 mL/min (90-130); Glucose 149 mg/dL (65-115); Osmolality Calculated 302 mOsm/kg (285-295); Potassium 4.2 mmol/L (3.5-5.1); Sodium 142 mmol/L (136-145); Total Bilirubin 0.9 mg/dL (0.15-1.2); Total Protein 5.7 g/dL (6.6-8.7)
[2020-09-09 07:11] LABS: Creatine Phosphokinase 1688 U/L (26-192)
--- NOTE | 2020-09-09 08:05 | PC.NURSE ---
Shift Summary: Patient has remained proned through entire shift. Frequent repositioning completed Q2H. Low grade fever treated with PRN APAP, to which fever resolved. See MAR flowsheet for drip titrations. Drips running @ Fent 125mcg Prop 50mcg Versed 7mcg King 65mL/hr Report given to manny coleman RN.
[2020-09-09] MEDS: dexamethasone 4 mg/mL INJ 6 MG IVP (08:57)
--- NOTE | 2020-09-09 09:24 | PC.NUTR ---
NUTR TF RECOMMENDATIONS: Jevity with goal rate of 45 ml/hr providing 1296 kcal (48%), 59 g PRO (94%), and 872 ml fluid (33%)(%NEEDS). Suggest starting TF at 25 ml/hr and increas by 10 ml Q6H as tolerated till goal rate is met. Suggest H2O flushes of 250 ml Q4H to approach fluid needs or per physician. Additional 892 kcal from diprivan total kcal 2188 (82%).
[2020-09-09] MEDS: budesonide 0.5 mg/2 mL Neb INHALATION ×2 (11:08→19:31)
[2020-09-09 12:46] LABS: Glucose Point of Care 164 mg/dL (70-110)
[2020-09-09] MEDS: enoxaparin 40 mg/0.4 mL Syringe SUBCUT (13:41)
[2020-09-09] MEDS: propofol 1,000 MG/100 ML INJ 27 MG IV (14:59)
[2020-09-09] MEDS: vancomycin 1,000 MG in sodium chloride 0.9% 250 ML 250 MG IV ×2 (15:52→23:28)
[2020-09-09 16:16] LABS: ABG PCO2 46.2 mmHg (35-45); ABG PH Result 7.49 (7.35-7.45); Alveolar-Arterial Oxygen Gradi 27.3 mmHg (5-10); Arterial Blood Gas Hematocrit 29.9 % (37-47); Base Excess ABG 10.3 mmol/L (-2.0-2.0); Blood Gas Allen Test Pos; Blood Gas Operator Identificat MONRO; Blood Gas Sample Site Radial, left; Blood Gas Sample Type Arterial; Carboxyhemoglobin 1.6 %THgb (0.4-20.1); HCO3 ABG 34.8 mmol/L (22-26); Ionized Calcium Level - ABG 1.1 mmol/L (1.1-1.4); Methemoglobin < 0.0 % (0.4-1.5); Oxygen Device VENT; Oxygen Saturation ABG 90.9; PO2 ABG 55.6 mmHg (80.0-100.0); Potassium Level - ABG 4.8 mmol/L (3.5-5.0); Total Hemoglobin 9.7 g/dL (12-16)
[2020-09-09] MEDS: cefepime 1,000 MG in sodium chloride 0.9% (plus) 50 ML 100 MG IV (17:00)
[2020-09-09 17:16] LABS: Glucose Point of Care 202 mg/dL (70-110)
--- NOTE | 2020-09-09 18:11 | PM.PN ---
Subjective Subjective: Interval history: 45-year-old female with a past medical history significant for anxiety, depression, hypertension, restless leg syndrome and asthma who presented to the ER on 09/02 during which time she was found to have COVID-19 Infection subsequently discharged on oxygen and Decadron. She will return to the hospital due to progressively worsening respiratory distress. O2 sat was found to be 76%. She was placed on BiPAP, given ceftriaxone, azithromycin and transferred to [facility]. Upon arrival patient was noted to have labored respiration on BiPAP with Fio2 at 100%. ABG drawn showed a PH of 7.42, pCO2 of 46.6, Po2 of 63.8, HCO3 of 29.0. Due to increase work of breath and high risk for decompensation patient was intubated on placed on mechanical ventilation. Remained of labs drawn showed a WBC of 16.4, hgb of 11.3, hct of 35.4 and a platelet count of 268. Sodium of 138, potassium of 4.0, chloride of 98, bicarbonate of 29, BUN of 18 and a creatinine of 0.7. AST of 45, ALT of 30 and ALP of 78. Chest x-ray was obtained post intubation which noted severe bilateral pulmonary opacifications, ET tube at 2 cm above the tyesha and left central line terminated at the junction of the left innominate with the SVC. Patient was continued on mechanical ventilation. She was initiated on deep sedation protocol. Fentanyl comp profile and Versed drip were used. she was found to have severe acute respiratory distress syndrome. On day 2 required ET tube to be changed due to cuff leak. Subsequently was continued on pressure control ventilation. FiO2 requirements remain elevated. Pa02/Fio2 was 68. Initiated on NMB with rocoronium per protocol. Brain wave/TOF monitoring. Likely due to multiple sedative drugs required for deep sedation she developed hypotension requiring levophed to keep MAP greater than 65. Also initially started on broad spectrum abx however low suspicion of underlying bacterial infection. Procalcitonin was noted to be 0.13. Vancomycin and zosyn were stopped and she was monitor off abx. Remdesivir 200 mg IV x 1 was given on day of admission and then subsequently continued on 100 mg iv daily protocol for a total of 5 days. In addition to this she was started on Decadron 6 mg IV daily which was increased to BID. Duonebs were continued with addition of pulmicort 0.5 mg BID. D-dimer was noted to be 0.8-0.9 and thus only a prophylactic dose of lovenox was continued. 09/04 Patient was noted to have cuff leak and thus ET tube was replaced. Continue on vent with sedation. Also continued to require 100% Fio2. Low grade temp -99.2. 09/05 Remained in critical condition overnight. Noted to have oxygen saturation ranging from high 80s to low 90s. Continued on pressure control. Peek plataue pressures ranging remained less than 30. TV ranging from 270s to 400s. Continue to also require Levophed to maitain map over 65. No fever was noted. In AM she was noted to have expiratory sound which was thought to be cuff leak however this was not appearant on vent. NMB was initiated. 09/06 Overnight patient was initially transitioned to VC/AC however in am due to poor tidal volume and Pplateau > 30 she was transitioned to Pressure control ventilation. At Fio2 of 80%. Subsequently placed in prone position which was to continue for 16hr. Levophed was weaned off. Continued on propofol, versed and fentanyl for deep sedation. Did not have any fevers overnight. Urine output adequate. 09/07 Patients vent mode was changed to cmv overnight. Repeat had noted hypercapnia however am abg showed worsening hypoxemia. No fever or chills. No nausea or vomiting. 09/08 Patient was prone last evening which she tolerated for 16 hours. FiO2 was decreased to 50%. She noted have slightly decreased urine output. low grade fevers overnight. 09/09 Tolerated proning last night. Having fever Stable on vent Medications: Reviewed: Yes Vitals/I&O/Wt Last Vital Signs Temp 100.3 F H 09/09/20 16:00 Pulse 108 H 09/09/20 19:53 Resp 18 09/09/20 21:01 BP 93/62 09/09/20 18:30 Pulse Ox 90 09/09/20 19:53 09/09/20 09/09/20 09/09/20 06:59 14:59 22:59 Intake Total 747.583 / 1960.890 889.567 / 889.567 402.067 / 1291.634 Output Total 650 / 2350 450 / 450 300 / 750 Balance 97.583 / -389.110 439.567 / 439.567 102.067 / 541.634 Weight last 48 hrs Weight 107.2 kg Weight 106.1 kg Physical Exam Narrative: EXAM NARRATIVE: General : intubated on MV HEENT : ET tube in place CVS : NSR Chest : B/L vented sounds ABD : Non-distended Ext: no edema Urinary Catheter Management^: Yepez: Cath Placed During This Visit: no Reason for Continuing Indwelling Catheter: Accurate Measurement of Urinary Output in Critically Ill Patients Data : 09/09/20 04:00 09/09/20 04:00 Micro: Microbiology 09/09/20 10:32 Blood Culture - Preliminary Blood SPECIMEN COLLECTED 09/09/20 10:45 Blood Culture - Preliminary Blood SPECIMEN COLLECTED 09/03/20 17:24 Blood Culture - Final Blood NO GROWTH AFTER 5 DAYS 09/03/20 17:11 Blood Culture - Final Blood NO GROWTH AFTER 5 DAYS A&P Assessment and plan (1) Acute respiratory distress syndrome (ARDS) due to 2019 novel coronavirus: Status: Acute Severe ARDS due to COVID-19 pneumonia on mechanical ventilation with underlying hx of Asthma - Non-cardiogenic pulmonary edema Labs: - 09/04 - ABG - PH of 7.33, PCO2 of 56.3, PO2 of 56.2, HCO3 of 29.7 on PS, PEEP 14, Fio2 100% - 09/05 - ABG - 7.37 pCO2 of 57.1, Pao2 of 55.9, HCO3 of 32.7 - D-dimer of 0.89 , Procalcitonin 0.13- > 0.5, LDH of 578, CRP of 57.9, Ferritin 360 -> 453. - Pa02/Fio2 ratio - remaining < 100 - Blood culture x 2 - NGTD - Sputum culture -negative Imaging - 09/04 - Chest x-ray -> Moderate pulmonary htn, stable b/l pulmonary infiltrates, ET 4.5 cm above the tyesha, gaseous distention of stomach. - 09/06 - increasing infiltrates, pneumonitis - 09/07 - Chest x-ray - Extensive consolidating infiltrates throughout both lungs showing minimal improvement since previous study Meds: - Propofol at 40, Versed at 3mg/hr and Fentanyl increased to 150 mcg/hr - Duoneb q6hr scheduled - Pulmicort 0.5 mg BID - Decadron 6 mg IV Daily - Remdesivir 100mg IV daily Plan: ABG : 7.45, pCO2 of 53.3, PO2 of 73.8 and a bicarb of 37. patient's FiO2 was decreased to 50% - D/w Pulmonary - Artificial tears q2hr - Comppleted 3/3 days of proaning - Decadron 6 mg IV daily - Blood sugar goal < 180 - Increasing WBC - > obtain blood culture x 2 - Vanco/cefepime started Rhabdomyolysis improving - CPK elevated - Possibly due to propofol/lou - Repeat CPK in am Tranaminitis - Stable - Likely due to COVID-19 - AST 41- 43 - > 106 - > 65 - ALT - 35 - 36 -> 52 - > 56 - Continue daily LFTs Lines/Tubes - ET tube - L. IJ Central line - Yepez - OG GI ppx - Pepcid 20 mg IV BID DVT ppx - Lovenox 40 mg SQ daily Prognosis - Guarded Attestations Medical Necessity Statement*: Continue hospitalization for managemnet of covid 19 pneunonia Time Spent in Patient Care: Greater than 35 minutes (>than 50% of time spent in counselling and/or direct pt care on unit). Coding Level of Care Code Acute Marble Finisher for Jovon Roach Diagnoses Acute respiratory distress syndrome (ARDS) due to 2019 novel coronavirus U07.1; J80
--- NOTE | 2020-09-09 19:22 | P.PN_ITS ---
Subjective Subjective: Interval history: Patient was prone for 16 hours x third session yesterday overnight. Today came down to FiO2 50% and PEEP of 12 and saturating 92% on pressure control mode Off paralytic and slowly coming down on sedation WBC 12 K and T-max 99.2 otherwise no lab abnormalities Sent for mccormick cultures and started on Vanco and cefepime while awaiting culture results Medications: Reviewed: Yes Vitals/I&O/Wt Last Vital Signs Temp 100.3 F H 09/09/20 16:00 Pulse 95 09/09/20 18:30 Resp 18 09/09/20 17:05 BP 93/62 09/09/20 18:30 Pulse Ox 87 L 09/09/20 18:30 09/09/20 09/09/20 09/09/20 06:59 14:59 22:59 Intake Total 747.583 / 1960.890 889.567 / 889.567 356.517 / 1246.084 Output Total 650 / 2350 450 / 450 300 / 750 Balance 97.583 / -389.110 439.567 / 439.567 56.517 / 496.084 Weight last 48 hrs Weight 236 lb 5.369 oz Weight 233 lb 14.567 oz Physical Exam Narrative: EXAM NARRATIVE: PHYSICAL EXAM: General: lying in bed, sedated and intubated. HEENT:NCAT, PERRLA, EOMI Neck: Supple Lungs: Bilateral diffuse crackles and coarse rhonchi Heart: s1/s2, RRR Abd: Obese, soft, NT, ND, BS + Normoactive Extremities: No edema WHITE MIXING OPERATOR: sedated and limited WHITE MIXING OPERATOR exam possible. SKIN: no rash LDA: # CVC: Left IJ 09/03/2020 # Fernandes: 09/03/2020 Urinary Catheter Management^: Fernandes: Cath Placed During This Visit: no Reason for Continuing Indwelling Catheter: Accurate Measurement of Urinary Output in Critically Ill Patients Data : 09/09/20 04:00 09/09/20 04:00 Micro: Microbiology 09/09/20 10:32 Blood Culture - Preliminary Blood SPECIMEN COLLECTED 09/09/20 10:45 Blood Culture - Preliminary Blood SPECIMEN COLLECTED 09/03/20 17:24 Blood Culture - Final Blood NO GROWTH AFTER 5 DAYS 09/03/20 17:11 Blood Culture - Final Blood NO GROWTH AFTER 5 DAYS A&P Assessment and plan (1) Acute respiratory distress syndrome (ARDS) due to 2019 novel coronavirus: Status: Acute (2) Asthma: Status: Acute Qualifiers: Asthma severity: unspecified severity Asthma persistence: unspecified Asthma complication type: unspecified Qualified Code(s): J45.909 - Unspecified asthma, uncomplicated (3) HTN (hypertension): Status: Acute Qualifiers: Hypertension type: unspecified Qualified Code(s): I10 - Essential (primary) hypertension (4) Ventilator dependent: Status: Acute (5) Acute respiratory failure with hypoxia: Status: Acute (6) Morbid obesity: Status: Acute 45-year-old female with a PMH significant for anxiety, depression, hypertension, restless leg syndrome and asthma who presented to the outside ER on 09/02, found to have COVID-19 Infection subsequently discharged on oxygen and Decadron and returned to hospital for progressively worsening respiratory failure admitted to viral ICU for management of acute hypoxemic respiratory failure secondary to acute respiratory distress syndrome due to COVID-19 pneumonia requiring intubation and mechanical ventilation. NEURO: # Sedation -Off paralytic since today morning -On fentanyl 75 MCG/propofol 40 mg/h/Versed 4 -plan is to taper down sedation and start waking up patient to check mentation PULM: #Acute hypoxic and hypercapneic respiratory failure secondary to ARDS due to COVID pna #Respiratory status worsened by contribution from asthma exacerbation -Intubated on 09/02/2020 -S/p 3 sessions of 16-hour proning completed today morning -Currently on pressure control mode PIP 30/PEEP 12/FiO2 50%/respiratory rate 20 -Recommended -DuoNeb nebulization every 4 hours and Pulmicort 0.5 twice daily -Most recent ABG on pressure control mode 30 PIP, PEEP 12, rate 20, and FiO2 45 % -7.4 9/46/50/34/ 90% -CXR: Extensive consolidating infiltrates throughout both lungs showing minimal improvement since previous study. -Improving inflammatory markers -Completed remdesivir and continue dexamethasone daily CVS: -Hemodynamically stable -Recommended to taper down propofol -Monitor heart rate and blood pressure -BNP normal; obtain echo GI: -Pulmicort tube feeding @ 10 mL/hour -Bowel regimen: Senna docusate at bedtime -H2 chasidy daily for GI prophylaxis -Improving LFTs RENAL: -Renal functions normal -Electrolytes within normal limits -1688 - trend CK -ABG suggestive of metabolic alkalosis -would recommend to give 500 cc LR -Monitor input output -Continue fernandes cath -Avoid nephrotoxins -Monitor BUN/creatinine and electrolytes and supplement accordingly to keep k>4, Mg >2 HEM: H&H stable Plts stable,will trend Coags stable ENDO: -Moderately controlled -On scale coverage ID: #Severe sepsis secondary to COVID pna -Low-grade temperature and 12,000 WBC -Follow-up pancultures - start on broad-spectrum antibiotics vancomycin and cefepime. -DC antibiotics if cultures negative Prognosis: Critical Disposition: Remains in ICU Code: Full code Plan of care and recommendations conveyed to Dr. Mohamud hospitalist on the case, R N and RT ICU CHECKLIST: Problem list updated Verbal orders reviewed and signed Analgesia: Fentanyl Glycemic Control: Scale coverage Nutrition: Pulmicort Restraint Renewal (within 24 hrs): Yes Ulcer Prophylaxis: H2 chasidy yes Chemical Thromboprophylaxis: Prophylaxis: Heparin subcu Mechanical Thromboprophylaxis: Yes Need for Central line: Yes requiring any infusions sedation and paralytics Need for Fernandes catheter: Yes for urine output monitoring Critical Care Time (No Overlap): 45 min This patient has a high probability of sudden, clinically significant deterioration, which requires the highest level of physician preparedness to intervene urgently. I managed/supervised life or organ supporting interventions that required frequent physician assessment. I devoted my full attention in the ICU to the direct care of this patient for the period of time indicated above. Time I spent with family or surrogate(s) is included only if the patient was incapable of providing necessary information or participating in decision making. Time devoted to teaching and to any procedures I billed separately is not included. Services Provided: Telemetry review Mechanical Ventilation Hemodynamic interpretation, assessment and management Review and interpretation of CXR Review and interpretation of lab values Review and interpretation of microbiologic data and culture results Review of medications and administration Review and interpretation of Nutrition requirements and management Discussion of management with other consultants and services Clinical update to family members Mother : [phone] Attestations Medical Necessity Statement*: Acute hypoxic respiratory failure secondary to ARDS due to COVID-19 pneumonia still requiring mechanical ventilation Coding Level of Care Code Established Pt Acute Marketing Planning Manager for Chg Fwd Patient Type Established History Comprehensive Exam Comprehensive Medical Decision Making High Complexity Diagnoses Acute respiratory distress syndrome (ARDS) due to 2019 novel coronavirus U07.1; J80 Asthma J45.909 Asthma severity: unspecified severity Asthma persistence: unspecified Asthma complication type: unspecified HTN (hypertension) I10 Hypertension type: unspecified Ventilator dependent Z99.11 Acute respiratory failure with hypoxia J96.01 Morbid obesity E66.01 Time Spent (min) 45
[2020-09-09] MEDS: sennosides-docusate Tablet 1 TAB PO (21:03)
[2020-09-09] MEDS: propofol 1,000 MG/100 ML INJ 23.6 MG IV (21:03)
[2020-09-09 23:57] LABS: Glucose Point of Care 152 mg/dL (70-110)
[2020-09-10] VITALS (55 sets, daily range): BP systolic 90–142; BP diastolic 53–77; PULSE 80–113; RESP 14–34; TEMP 37.2–38.3; O2SAT 78–93
[2020-09-10] MEDS: ipratropium-albuterol 3 mL Neb INHALATION ×7 (00:19→20:10)
[2020-09-10] MEDS: propofol 1,000 MG/100 ML INJ 23.6 MG IV ×3 (00:25→09:29)
[2020-09-10 04:10] LABS: Basophils % 0.2 %; Eosinophils % 0.2 %; Hematocrit 30.6 % (37.0-47.0); Hemoglobin 9.3 g/dL (11.5-15.3); Lymphocytes # 0.7 10^3/uL (0.8-4.8); Lymphocytes % 5.6 %; Mean Corpuscular HGB Conc 30.4 g/dL (30.0-36.0); Mean Corpuscular Hemoglobin 29.1 pg (28.0-34.0); Mean Corpuscular Volume 95.6 fL (81-99); Mean Platelet Volume 9.7 fL (7.4-10.4); Monocytes # 0.7 10^3/uL (0.2-0.9); Monocytes % 5.1 %; Neutrophils # 11.13 10^3/uL (1.8-7.7); Neutrophils % 83.8 %; Nucleated Red Blood Cells # 0.1 /100WBC; Nucleated Red Blood Cells % 0.4 %; Platelet Count 344 10^3/cmm (130-400); Red Cell Distribution Width 14.4 % (12.1-15.1); White Blood Count 13.3 10^3/uL (4.0-10.0)
[2020-09-10 04:30] LABS: Alanine Aminotransferase 43 U/L (0-33); Albumin Level 2.7 g/dL (3.5-5.2); Alkaline Phosphatase 51 IU/L (35-105); Anion Gap 9.3 (5-19); Aspartate Amino Transferase 37 U/L (0-32); Blood Urea Nitrogen 24 mg/dL (6-20); Calcium 7.7 mg/dL (8.5-10.5); Carbon Dioxide 34 mmol/L (22-29); Chloride 102 mmol/L (98-107); Globulin 2.8 g/dL (1.3-4.6); Glomerular Filtration Rate 133.4 mL/min (90-130); Glucose 119 mg/dL (65-115); Osmolality Calculated 297 mOsm/kg (285-295); Potassium 4.3 mmol/L (3.5-5.1); Sodium 141 mmol/L (136-145); Total Protein 5.5 g/dL (6.6-8.7)
[2020-09-10 04:38] LABS: Procalcitonin 0.12 ng/mL (0-0.5)
[2020-09-10 04:50] LABS: Triglycerides 275 mg/dL (0-150)
[2020-09-10] MEDS: cefepime 1,000 MG in sodium chloride 0.9% (plus) 50 ML 100 MG IV ×2 (05:14→16:57)
[2020-09-10 06:04] LABS: Glucose Point of Care 139 mg/dL (70-110)
[2020-09-10 07:10] LABS: Vancomycin Trough 6.5 ug/mL (10-15)
[2020-09-10] MEDS: vancomycin 1,000 MG in sodium chloride 0.9% 250 ML 250 MG IV (07:54)
[2020-09-10] MEDS: budesonide 0.5 mg/2 mL Neb INHALATION ×2 (08:19→20:10)
[2020-09-10] MEDS: dexamethasone 4 mg/mL INJ 6 MG IVP (09:29)
[2020-09-10 11:38] LABS: Glucose Point of Care 136 mg/dL (70-110)
[2020-09-10] MEDS: famotidine 20 mg/2 mL INJ IVP ×2 (12:44)
[2020-09-10] MEDS: enoxaparin 40 mg/0.4 mL Syringe SUBCUT (12:44)
[2020-09-10 13:39] LABS: Oxygen Device VENT
[2020-09-10] MEDS: propofol 1,000 MG/100 ML INJ 33.8 MG IV ×4 (14:07→22:44)
--- NOTE | 2020-09-10 15:30 | PM.PN ---
Subjective Subjective: Interval history: 45-year-old female with a past medical history significant for anxiety, depression, hypertension, restless leg syndrome and asthma who presented to the ER on 09/02 during which time she was found to have COVID-19 Infection subsequently discharged on oxygen and Decadron. She will return to the hospital due to progressively worsening respiratory distress. O2 sat was found to be 76%. She was placed on BiPAP, given ceftriaxone, azithromycin and transferred to [facility]. Upon arrival patient was noted to have labored respiration on BiPAP with Fio2 at 100%. ABG drawn showed a PH of 7.42, pCO2 of 46.6, Po2 of 63.8, HCO3 of 29.0. Due to increase work of breath and high risk for decompensation patient was intubated on placed on mechanical ventilation. Remained of labs drawn showed a WBC of 16.4, hgb of 11.3, hct of 35.4 and a platelet count of 268. Sodium of 138, potassium of 4.0, chloride of 98, bicarbonate of 29, BUN of 18 and a creatinine of 0.7. AST of 45, ALT of 30 and ALP of 78. Chest x-ray was obtained post intubation which noted severe bilateral pulmonary opacifications, ET tube at 2 cm above the tyesha and left central line terminated at the junction of the left innominate with the SVC. Patient was continued on mechanical ventilation. She was initiated on deep sedation protocol. Fentanyl comp profile and Versed drip were used. she was found to have severe acute respiratory distress syndrome. On day 2 required ET tube to be changed due to cuff leak. Subsequently was continued on pressure control ventilation. FiO2 requirements remain elevated. Pa02/Fio2 was 68. Initiated on NMB with rocoronium per protocol. Brain wave/TOF monitoring. Likely due to multiple sedative drugs required for deep sedation she developed hypotension requiring levophed to keep MAP greater than 65. Also initially started on broad spectrum abx however low suspicion of underlying bacterial infection. Procalcitonin was noted to be 0.13. Vancomycin and zosyn were stopped and she was monitor off abx. Remdesivir 200 mg IV x 1 was given on day of admission and then subsequently continued on 100 mg iv daily protocol for a total of 5 days. In addition to this she was started on Decadron 6 mg IV daily which was increased to BID. Duonebs were continued with addition of pulmicort 0.5 mg BID. D-dimer was noted to be 0.8-0.9 and thus only a prophylactic dose of lovenox was continued. 09/04 Patient was noted to have cuff leak and thus ET tube was replaced. Continue on vent with sedation. Also continued to require 100% Fio2. Low grade temp -99.2. 09/05 Remained in critical condition overnight. Noted to have oxygen saturation ranging from high 80s to low 90s. Continued on pressure control. Peek plataue pressures ranging remained less than 30. TV ranging from 270s to 400s. Continue to also require Levophed to maitain map over 65. No fever was noted. In AM she was noted to have expiratory sound which was thought to be cuff leak however this was not appearant on vent. NMB was initiated. 09/06 Overnight patient was initially transitioned to VC/AC however in am due to poor tidal volume and Pplateau > 30 she was transitioned to Pressure control ventilation. At Fio2 of 80%. Subsequently placed in prone position which was to continue for 16hr. Levophed was weaned off. Continued on propofol, versed and fentanyl for deep sedation. Did not have any fevers overnight. Urine output adequate. 09/07 Patients vent mode was changed to cmv overnight. Repeat had noted hypercapnia however am abg showed worsening hypoxemia. No fever or chills. No nausea or vomiting. 09/08 Patient was prone last evening which she tolerated for 16 hours. FiO2 was decreased to 50%. She noted have slightly decreased urine output. low grade fevers overnight. 09/09 Tolerated proning last night. Having fever Stable on vent 1231 Remained on vent. Noted to have fevers with a T-max of 101. Medications: Reviewed: Yes Vitals/I&O/Wt Last Vital Signs Temp 99.6 F 09/10/20 11:00 Pulse 98 09/10/20 13:00 Resp 25 H 09/10/20 13:52 BP 102/56 09/10/20 13:00 Pulse Ox 89 L 09/10/20 13:00 09/10/20 09/10/20 09/10/20 06:59 14:59 22:59 Intake Total 1045.926 / 2437.560 560.574 / 560.574 Output Total 600 / 1350 Balance 445.926 / 1087.560 560.574 / 560.574 Weight last 48 hrs Weight 104.78 kg Weight 107.2 kg Physical Exam Narrative: EXAM NARRATIVE: General : intubated on MV HEENT : ET tube in place CVS : NSR Chest : B/L vented sounds ABD : Non-distended Ext: no edema Urinary Catheter Management^: Yepez: Cath Placed During This Visit: no Reason for Continuing Indwelling Catheter: Accurate Measurement of Urinary Output in Critically Ill Patients Data : 09/10/20 03:44 09/10/20 03:44 Micro: Microbiology 09/09/20 10:45 Blood Culture - Preliminary Blood NEGATIVE TO DATE 09/09/20 10:32 Blood Culture - Preliminary Blood NEGATIVE TO DATE A&P Assessment and plan (1) Acute respiratory distress syndrome (ARDS) due to 2019 novel coronavirus: Status: Acute Severe ARDS due to COVID-19 pneumonia on mechanical ventilation with underlying hx of Asthma - Non-cardiogenic pulmonary edema - Possible super imposed bacterial infection Labs: - 09/04 - ABG - PH of 7.33, PCO2 of 56.3, PO2 of 56.2, HCO3 of 29.7 on PS, PEEP 14, Fio2 100% - 09/05 - ABG - 7.37 pCO2 of 57.1, Pao2 of 55.9, HCO3 of 32.7 - D-dimer of 0.89 , Procalcitonin 0.13- > 0.5, LDH of 578, CRP of 57.9, Ferritin 360 -> 453. - Pa02/Fio2 ratio - remaining < 100 - Blood culture x 2 - NGTD - Sputum culture -negative Imaging - 09/04 - Chest x-ray -> Moderate pulmonary htn, stable b/l pulmonary infiltrates, ET 4.5 cm above the tyesha, gaseous distention of stomach. - 09/06 - increasing infiltrates, pneumonitis - 09/07 - Chest x-ray - Extensive consolidating infiltrates throughout both lungs showing minimal improvement since previous study Meds: - Propofol at 40, Versed at 3mg/hr and Fentanyl increased to 150 mcg/hr - Duoneb q6hr scheduled - Pulmicort 0.5 mg BID - Decadron 6 mg IV Daily - Remdesivir 100mg IV daily Plan: - Cotninue vent, wean fi02 - Follow up on ABG - Chest -xray in am - Decadron 6 mg IV daily - Completed Remdesivir - Blood sugar goal < 180 - Blood culture x 2 - NGTD - Vanco/cefepime - Tmax 101 - If persistent may need to remove lines Rhabdomyolysis improving - CPK elevated - improving - Possibly due to propofol/lou - Repeat CPK in am Tranaminitis - Stable - Likely due to COVID-19 - AST 41- 43 - > 106 - > 65 - ALT - 35 - 36 -> 52 - > 56 - Continue daily LFTs Lines/Tubes - ET tube - L. IJ Central line - Yepez - OG GI ppx - Pepcid 20 mg IV BID DVT ppx - Lovenox 40 mg SQ daily Prognosis - Guarded Attestations Medical Necessity Statement*: Require continued hospitalization for management of COVID-19 pneumonia requiring mechanical ventilation. Time Spent in Patient Care: Greater than 35 minutes (>than 50% of time spent in counselling and/or direct pt care on unit). Critical Care Time: Critical Care Time (min): 45 Coding Level of Care Code Acute Director Water And Waste Services for Jovon Roach Diagnoses Acute respiratory distress syndrome (ARDS) due to 2019 novel coronavirus U07.1; J80
[2020-09-10] MEDS: vancomycin 1,250 MG/250 ML PIGGYBACK 250 MG IV ×2 (15:55→22:45)
[2020-09-10 16:23] LABS: Blood Gas Allen Test Pos; Blood Gas Sample Type Arterial
[2020-09-10 16:37] LABS: Blood Gas Sample Site Radial, left; Oxygen Device VENT
[2020-09-10 16:42] LABS: Alveolar-Arterial Oxygen Gradi 1.5 mmHg (5-10); Arterial Blood Gas Hematocrit 30.6 % (37-47); Carboxyhemoglobin 1.1 %THgb (0.4-20.1); HGB O2 Sat 87.2 % (95-100); Ionized Calcium Level - ABG 1.3 mmol/L (1.1-1.4); Methemoglobin 0.9 % (0.4-1.5)
[2020-09-10 16:43] LABS: ABG PCO2 48.4 mmHg (35-45); ABG PH Result 7.42 (7.35-7.45); HCO3 ABG 31.3 mmol/L (22-26); PO2 ABG 63.8 mmHg (80.0-100.0)
[2020-09-10 16:44] LABS: Oxygen Saturation ABG 91.5; Potassium Level - ABG 4.4 mmol/L (3.5-5.0)
[2020-09-10 17:41] LABS: Glucose Point of Care 184 mg/dL (70-110)
--- NOTE | 2020-09-10 19:35 | PC.NURSE ---
Shift summary: Pt remains intubated and sedated.. She had a sedation vacation this am, follows commands and can nod yes/no to questions. Her minute volume increased so her sedation had to be increased to assist her ventilation. Fentanyl now at 80mcg/hr and Propofol at 50mcg/kg/min. Lung sounds improved. Central line patent. Pt incontinent of Bm a couple of times. Loose large BMs noted. Pt provided with bath and linen change this shift.
--- NOTE | 2020-09-10 19:42 | PC.NURSE ---
Report given to DARLENE Camp.
[2020-09-10 20:23] LABS: Glucose Point of Care 187 mg/dL (70-110)
[2020-09-11] VITALS (39 sets, daily range): BP systolic 86–125; BP diastolic 55–73; PULSE 87–108; RESP 20–30; TEMP 36.6; O2SAT 85–92
[2020-09-11] MEDS: ipratropium-albuterol 3 mL Neb INHALATION ×5 (00:01→15:45)
[2020-09-11 00:32] LABS: Glucose Point of Care 145 mg/dL (70-110)
[2020-09-11] MEDS: famotidine 20 mg/2 mL INJ IVP ×2 (01:07→12:23)
[2020-09-11 04:20] LABS: Basophils % 0.1 %; Eosinophils % 0.2 %; Hematocrit 29.7 % (37.0-47.0); Lymphocytes # 0.4 10^3/uL (0.8-4.8); Mean Corpuscular HGB Conc 30.3 g/dL (30.0-36.0); Mean Corpuscular Volume 95.8 fL (81-99); Mean Platelet Volume 9.8 fL (7.4-10.4); Monocytes # 0.6 10^3/uL (0.2-0.9); Monocytes % 4.4 %; Neutrophils # 12.81 10^3/uL (1.8-7.7); Neutrophils % 88.3 %; Nucleated Red Blood Cells % 0.1 %; Platelet Count 330 10^3/cmm (130-400); Red Cell Distribution Width 14.6 % (12.1-15.1); White Blood Count 14.5 10^3/uL (4.0-10.0)
[2020-09-11 04:44] LABS: Alanine Aminotransferase 37 U/L (0-33); Albumin Level 2.5 g/dL (3.5-5.2); Alkaline Phosphatase 56 IU/L (35-105); Anion Gap 10.4 (5-19); Aspartate Amino Transferase 34 U/L (0-32); Blood Urea Nitrogen 20 mg/dL (6-20); Calcium 7.9 mg/dL (8.5-10.5); Carbon Dioxide 32 mmol/L (22-29); Chloride 101 mmol/L (98-107); Globulin 2.9 g/dL (1.3-4.6); Glomerular Filtration Rate 240.6 mL/min (90-130); Glucose 138 mg/dL (65-115); Osmolality Calculated 293 mOsm/kg (285-295); Potassium 4.4 mmol/L (3.5-5.1); Sodium 139 mmol/L (136-145); Total Bilirubin 0.8 mg/dL (0.15-1.2); Total Protein 5.4 g/dL (6.6-8.7)
[2020-09-11] MEDS: cefepime 1,000 MG in sodium chloride 0.9% (plus) 50 ML 100 MG IV (04:48)
[2020-09-11] MEDS: propofol 1,000 MG/100 ML INJ 33.8 MG IV ×4 (04:48→16:05)
[2020-09-11 04:52] LABS: Procalcitonin 0.15 ng/mL (0-0.5)
[2020-09-11 05:04] LABS: Ferritin 206 ng/mL (15-150)
[2020-09-11 05:06] LABS: ABG PCO2 44.3 mmHg (35-45); ABG PH Result 7.45 (7.35-7.45); Base Excess ABG 6.3 mmol/L (-2.0-2.0); Blood Gas Allen Test Pos; Blood Gas Operator Identificat JB; Blood Gas Sample Site Radial, left; Blood Gas Sample Type Arterial; Oxygen Device VENT; PO2 ABG 64.4 mmHg (80.0-100.0)
--- NOTE | 2020-09-11 07:00 | XR_ITS ---
WS: [id number] Exam: XR chest 1V portable [id number] Date/Time of Exam: 09/11/2020 7:16 AM Reason For Exam: respiratory failure Comparison 09/07/2020. Extensive bilateral consolidating infiltrates. Infiltrates in the right lung as well as the upper lob e of the left lung show some improvement. The ET tube remains in good position ending about 3 cm abov e the tyesha. Left IJ catheter ends at the cavoatrial junction unchanged. An NG tube is in place endi ng in the gastric antrum. Monitoring leads superimpose the chest. Cardiomediastinal structures unrema rkable for portable technique. XR/XR chest 1V portable [id number] IMPRESSION: 1. Infiltrates have improved throughout the right lung as well as the upper lob e of the left lung since last exam. No other change.
[2020-09-11] MEDS: dexamethasone 4 mg/mL INJ 6 MG IVP (08:32)
[2020-09-11] MEDS: vancomycin 1,250 MG/250 ML PIGGYBACK 250 MG IV ×2 (08:32→16:39)
[2020-09-11] MEDS: budesonide 0.5 mg/2 mL Neb INHALATION (08:42)
[2020-09-11 08:45] LABS: Glucose Point of Care 129 mg/dL (70-110)
[2020-09-11 11:29] LABS: Glucose Point of Care 160 mg/dL (70-110)
[2020-09-11] MEDS: enoxaparin 40 mg/0.4 mL Syringe SUBCUT (12:20)
[2020-09-11 13:30] LABS: ABG PCO2 45.4 mmHg (35-45); ABG PH Result 7.43 (7.35-7.45); Alveolar-Arterial Oxygen Gradi 76.8 mmHg (5-10); Arterial Blood Gas Hematocrit 30.9 % (37-47); Base Excess ABG 5.3 mmol/L (-2.0-2.0); Blood Gas Allen Test Pos; Blood Gas Sample Site Radial, left; Blood Gas Sample Type Arterial; Carboxyhemoglobin 1.6 %THgb (0.4-20.1); HCO3 ABG 30.3 mmol/L (22-26); Ionized Calcium Level - ABG 1.1 mmol/L (1.1-1.4); Methemoglobin 0.4 % (0.4-1.5); Oxygen Device VENT; Oxygen Saturation ABG 90.8; PO2 ABG 60.4 mmHg (80.0-100.0); Potassium Level - ABG 4.3 mmol/L (3.5-5.0); Total Hemoglobin 10.1 g/dL (12-16)
[2020-09-11 14:22] LABS: Glucose Point of Care 131 mg/dL (70-110)
--- NOTE | 2020-09-11 15:48 | PC.PHAR ---
ORDER FOR ROCURONIUM CAME ACROSS WITHOUT A PROTOCOL. ASKED PATIENT NURSE TO CALL ME PRIOR TO INFUSING
--- NOTE | 2020-09-11 18:06 | PM.TDS ---
Transfer Summary Providers Date of Admission: 09/03/20 08:05 Date of Discharge: 09/11/20 Attending Provider at Admission: Sandy Mohamud Attending Provider at Transfer: Sandy Mohamud Anticipated Date of Transfer: Anticipated date of transfer: 09/18/20 Receiving Facility & Provider: Receiving Provider: [Dr. Randhawa] Receiving facility: [[facility]] Diagnoses at Discharge Discharge Diagnosis (1) Acute respiratory distress syndrome (ARDS) due to 2019 novel coronavirus: Status: Acute Reason for Visit Reason for Visit: Dyspnea Hospital Course Hospital Course 45-year-old female with a past medical history significant for anxiety, depression, hypertension, restless leg syndrome and asthma who presented to the ER on 09/02 during which time she was found to have COVID-19 Infection subsequently discharged on oxygen and Decadron. She will return to the hospital due to progressively worsening respiratory distress. O2 sat was found to be 76%. She was placed on BiPAP, given ceftriaxone, azithromycin and transferred to [facility]. Upon arrival patient was noted to have labored respiration on BiPAP with Fio2 at 100%. ABG drawn showed a PH of 7.42, pCO2 of 46.6, Po2 of 63.8, HCO3 of 29.0. Due to increase work of breath and high risk for decompensation patient was intubated on placed on mechanical ventilation. Remained of labs drawn showed a WBC of 16.4, hgb of 11.3, hct of 35.4 and a platelet count of 268. Sodium of 138, potassium of 4.0, chloride of 98, bicarbonate of 29, BUN of 18 and a creatinine of 0.7. AST of 45, ALT of 30 and ALP of 78. Chest x-ray was obtained post intubation which noted severe bilateral pulmonary opacifications, ET tube at 2 cm above the tyesha and left central line terminated at the junction of the left innominate with the SVC. Patient was continued on mechanical ventilation. She was initiated on deep sedation protocol. Fentanyl comp profile and Versed drip were used. she was found to have severe acute respiratory distress syndrome. On day 2 required ET tube to be changed due to cuff leak. Subsequently was continued on pressure control ventilation. FiO2 requirements remain elevated. Pa02/Fio2 was 68. Initiated on NMB with rocoronium per protocol. Brain wave/TOF monitoring. Likely due to multiple sedative drugs required for deep sedation she developed hypotension requiring levophed to keep MAP greater than 65. Also initially started on broad spectrum abx however low suspicion of underlying bacterial infection. Procalcitonin was noted to be 0.13. Vancomycin and zosyn were stopped and she was monitor off abx. Remdesivir 200 mg IV x 1 was given on day of admission and then subsequently continued on 100 mg iv daily protocol for a total of 5 days. In addition to this she was started on Decadron 6 mg IV daily which was increased to BID. Duonebs were continued with addition of pulmicort 0.5 mg BID. D-dimer was noted to be 0.8-0.9 and thus only a prophylactic dose of lovenox was continued. 09/04 Patient was noted to have cuff leak and thus ET tube was replaced. Continue on vent with sedation. Also continued to require 100% Fio2. Low grade temp -99.2. 09/05 Remained in critical condition overnight. Noted to have oxygen saturation ranging from high 80s to low 90s. Continued on pressure control. Peek plataue pressures ranging remained less than 30. TV ranging from 270s to 400s. Continue to also require Levophed to maitain map over 65. No fever was noted. In AM she was noted to have expiratory sound which was thought to be cuff leak however this was not apparent on vent. NMB was initiated. 09/06 Overnight patient was initially transitioned to VC/AC however in am due to poor tidal volume and Pplateau > 30 she was transitioned to Pressure control ventilation. At Fio2 of 80%. Subsequently placed in prone position which was to continue for 16hr. Levophed was weaned off. Continued on propofol, versed and fentanyl for deep sedation. Did not have any fevers overnight. Urine output adequate. 09/07 Patients vent mode was changed to cmv overnight. Repeat had noted hypercapnia however am abg showed worsening hypoxemia. No fever or chills. No nausea or vomiting. 09/08 Patient was prone last evening which she tolerated for 16 hours. FiO2 was decreased to 50%. She noted have slightly decreased urine output. low grade fevers overnight. 09/09 Tolerated proning last night. Having fever Stable on vent 09/10 Remained on vent. Noted to have fevers with a T-max of 101. 09/11/20 Patients unfortunately declined last evening. Completed 3 nights of proaning. Was gradually improving however Fio2 requirement increased to 100% overnight. Due to critical condition and need for higher level of care she was transferred to [facility]. She was emperically on broad specturm abx. Care was discussed with Dr. Randhawa at [facility] critical care unit. Transferred in stable condition on vent. Physical Exam Narrative: EXAM NARRATIVE: General : intubated on MV HEENT : ET tube in place CVS : NSR Chest : B/L vented sounds ABD : Non-distended Ext: no edema Urinary Catheter Management^: Yepez: Cath Placed During This Visit: no Reason for Continuing Indwelling Catheter: Accurate Measurement of Urinary Output in Critically Ill Patients TS Data Data Completed and Pending: Completed Studies During Hospitalization Category Date Time Status XR chest 1V morgan ble [id number] Routine Exams 09/11/20 07:00 Completed XR chest 1V morgan ble [id number] Routine Exams 09/06/20 13:16 Completed XR chest 1V morgan ble [id number] Routine Exams 09/07/20 07:00 Completed XR chest 1V morgan ble [id number] Stat Exams 09/03/20 10:04 Completed XR chest 1V morgan ble [id number] Stat Exams 09/04/20 10:17 Completed XR chest 1V morgan ble [id number] Stat Exams 09/04/20 17:16 Completed XR chest 1V morgan ble [id number] Stat Exams 09/05/20 10:17 Completed Vitals: Last Vital Signs Temp 97.9 F 09/11/20 00:00 Pulse 97 09/11/20 15:49 Resp 26 H 09/11/20 15:49 BP 97/59 09/11/20 10:00 Pulse Ox 91 09/11/20 15:49 TS Medications Medications Home Medications albuterol sulfate 2 puff INHALATION Q4H PRN 09/04/20 [History Confirmed 09/04/20] dexamethasone 8 mg PO DAILY 09/04/20 [History Confirmed 09/04/20] doxycycline hyclate 100 mg PO Q12H 09/04/20 [History Confirmed 09/04/20] lisinopril 20 mg PO DAILY 09/04/20 [History Confirmed 09/04/20] ropinirole 0.5 mg PO TID 09/04/20 [History Confirmed 09/04/20] Discharge Plan Discharge Patient Disposition: Xfer Other Condition: Stable Prescriptions: No Action dexamethasone 4 mg tablet 8 mg PO DAILY RF: 0 lisinopril 20 mg tablet 20 mg PO DAILY RF: 0 ropinirole 0.5 mg tablet 0.5 mg PO TID RF: 0 albuterol sulfate 90 mcg/actuation HFA aerosol inhaler 2 puff inhalation Q4H PRN (Reason: Shortness Of Breath) RF: 0 doxycycline hyclate 100 mg tablet 100 mg PO Q12H RF: 0 Discharge Orders: Discharge Order (Routine); Ordered 09/11/20 Ordered By: Sandy Mohamud Transfer Attestations Time Spent in Transfer Care*: greater than 30 min Specific Discharge Activities: Specific discharge activities: educating and/or supporting family/caregiver, discussing with case repairer/social workers/dc planners, documenting/other paperwork and evaluating patient/reviewing data Status at Transfer: Cognitive status at transfer: other (sedated), Functional status at transfer: other (on vent) Overall status at transfer: patient is not back to baseline Quality Metrics Clinical Quality Measures: During this hospital stay, did patient experience: None Coding Level of Care Code Acute Supervisor Multifocal Lens for Jovon Roach Diagnoses Acute respiratory distress syndrome (ARDS) due to 2019 novel coronavirus U07.1; J80
--- NOTE | 2020-09-11 19:21 | PC.NURSE ---
1230 Dr. Mohamud at bedside. Reviewed vital signs, labs, IV drips, vent settings, and plan of care. RT at bedside to make vent changes. [address] Mohamud to begin Versed drip and rocuronium drip in preparation for transfer to [facility]. Baseline train of four and BIS obtained. Sedation adjusted for appropriate BIS before rocuronium was initiated. Rocuronium drip rate double check with [place]. Multiple attempts were made to contact family, with no answer. Report was called to Placido Macias RN at [facility].
--- NOTE | 2020-09-11 23:17 | PC.NURSE ---
TRANSFERRING [facility] called about family contacts since they could not get ahold of listed contacts that were sent with transfer. Patients chart opened to verify that contacts listed were the same as contacts sent with transfer.
== END 2020-09-11 17:15 | disposition short-term general hospital (02) | DRG 207 ==
PROVIDERS: Internal Medicine Pulmonary Disease; Admitting Provider Hospitalist; Visit Provider Hospitalist
DX: U07.1 COVID-19 (principal); J12.89 Other viral pneumonia; J96.01 Acute respiratory failure with hypoxia; Z68.41 Body mass index [BMI] 40.0-44.9, adult; M62.82 Rhabdomyolysis; E87.3 Alkalosis; T82.524A Displacement of infusion catheter, initial encounter; F41.8 Other specified anxiety disorders; I10 Essential (primary) hypertension; G25.81 Restless legs syndrome; J45.909 Unspecified asthma, uncomplicated; E66.01 Morbid (severe) obesity due to excess calories; I95.9 Hypotension, unspecified; E87.6 Hypokalemia; T81.8 Other complications of procedures, not elsewhere classified; Y82.9 Unspecified medical devices associated with adverse incidents
CPT/HCPCS: 12345; 36415; 36416; 36592; 36600; 71045; 80048; 80051; 80053; 80202; 82330; 82550; 82728; 82803; 82805; 82962; 83605; 83615; 83735; 83880; 84100; 84145; 84478; 85007; 85025; 85378; 86140; 87040; 87070; 87205; 94002; 94003; 94640; 94660; 94669; 94799; 96372; A4570; C1751; J0330; J0692; J0743; J1100; J1650; J1815; J1940; J2250; J2543; J2704; J3010; J3370; J3475; J3490; J7030; J7050; J7611; J7626